=== PATIENT | female | born 1995 | race Caucasian/White ===

== ENCOUNTER 2021-11-01 23:10 | Inpatient (IN) ==
--- NOTE | 2021-11-01 23:30 | Emergency Department Note ---
Impression & Plan Drug overdose ADMIT ED Provider Note HPI: The patient is a 26-year-old female with history of generalized anxiety disorder, bipolar disorder, presents the emergency department after an intentional overdose as a suicide attempt. Patient states she took a total of 170mg of LexaproAt 6 PM today in an attempt to kill herself because she has been feeling increasingly anxious and depressed. Patient states that she then vomited 45 minutes later. On arrival here to the ED the patient is mildly tachycardic at 113 but otherwise hemodynamically stable, she is in no acute distress, she is alert and oriented x3, she is saturating well on room air. 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 On arrival the patient is hemodynamically stable and well-appearing, the ingestion reportedly occurred at 6PM according to the patient. Lab work was ordered including Tylenol and salicylate levels, basic labs, EKG was obtained that shows no evidence of any QT prolongation, QRS is within normal limits. Case was discussed with poison control, recommended a 6-hour period of observation until the patient could be medically cleared. Patient was therefore medically cleared at midnight. She remained otherwise hemodynamically stable and in no acute distress here in the ED throughout her stay. Lab work is otherwise reassuring aside from a moderate leukocytosis that is nonspecific in nature, patient has not had any recent fever/chills, otherwise appears well. Urinalysis does not show any evidence of infection, urine drug screen is currently pending. Patient will require assessment by case management but at this time she is voluntary under 201, 302 is under petition should the patient change her mind. Bed search will be initiated. Patient was signed out to my colleague, Dr. Gunn, change of shift pending bed search and final dis position/transfer For inpatient psychiatric services. Diagnosis: 1.Suicide attempt via drug ingestion 2.Anxiety/depression Disposition: Handoff Ej Romero, DO Emergency Medicine Past Med/Surg History Social History Smoking Status: Never smoker Feels Safe at Home: Yes Allergies Allergies Allergy/AdvReac Type Severity Reaction Status Date / Time No Known Allergies Allergy Unverified 11/02/21 00:02 Home Meds Home Medications Medication Instructions Recorded Confirmed Seroquel 250 mg PO HS 11/01/21 11/01/21 Wellbutrin 150 mg PO DAILY 11/01/21 11/01/21 hydroxyzine HCl 25 mg PO Q4 PRN Anxiety 11/01/21 11/01/21 lamotrigine 150 mg tablet 150 mg PO BID 11/01/21 11/01/21 (Lamictal) propranolol 20 mg PO BID 11/01/21 11/01/21 quetiapine 50 mg tablet (Seroquel) 50 mg PO BID 11/01/21 11/01/21 Results & Data (ED) Vital Signs Vital Signs - 24 hr 11/01/21 23:15 11/02/21 00:00 11/02/21 00:30 Temperature 36.6 C Temperature Source Temporal Artery Scan Pulse Rate 113 H 111 H 107 H Pulse Rate [Right Finger] Pulse Rhythm [Right Finger] Pulse Strength [Right Finger] Respiratory Rate 18 20 18 Respiratory Effort / Characteristics Non-Labored Spontaneous Respiratory Depth Normal Respiratory Pattern Blood Pressure 139/90 137/89 125/79 Blood Pressure [Right Arm] Blood Pressure Mean 106 105 94 Blood Pressure Mean [Right Arm] Blood Pressure Position [Right Arm] Pulse Oximetry 97 97 99 Oxygen Delivery Method Room Air Sepsis Recent Fever Within 48 Hours No Sepsis New/Unexplained Change in Mental Status No Sepsis Action Taken by Nursing No Action Required 11/02/21 01:00 11/02/21 01:30 11/02/21 02:00 Temperature Temperature Source Pulse Rate 104 H 107 H 103 H Pulse Rate [Right Finger] Pulse Rhythm [Right Finger] Pulse Strength [Right Finger] Respiratory Rate 18 20 18 Respiratory Effort / Characteristics Respiratory Depth Respiratory Pattern Blood Pressure 148/88 H 146/77 H 135/84 Blood Pressure [Right Arm] Blood Pressure Mean 108 100 101 Blood Pressure Mean [Right Arm] Blood Pressure Position [Right Arm] Pulse Oximetry 95 97 98 Oxygen Delivery Method Sepsis Recent Fever Within 48 Hours Sepsis New/Unexplained Change in Mental Status Sepsis Action Taken by Nursing 11/02/21 03:13 11/02/21 05:13 Temperature Temperature Source Pulse Rate Pulse Rate [Right Finger] 112 H 78 Pulse Rhythm [Right Finger] Regular Pulse Strength [Right Finger] Normal Respiratory Rate 18 20 Respiratory Effort / Characteristics Non-Labored Spontaneous Respiratory Depth Normal Respiratory Pattern Regular Blood Pressure Blood Pressure [Right Arm] 145/95 H 141/88 H Blood Pressure Mean Blood Pressure Mean [Right Arm] 111 105 Blood Pressure Position [Right Arm] Sitting Pulse Oximetry 99 98 Oxygen Delivery Method Room Air Room Air Sepsis Recent Fever Within 48 Hours Sepsis New/Unexplained Change in Mental Status Sepsis Action Taken by Nursing Laboratory Data Result diagrams: 11/01/21 23:45 11/01/21 23:45 Lab Results 11/01/21 11/01/21 11/01/21 Range/Units 23:30 23:45 23:45 WBC 14.13 H (4.8-10.8) K/ul RBC 4.38 (3.93-5.22) M/uL Hgb 11.7 L (12.0-16.0) g/dl Hct 35.1 (34.1-44.9) % MCV 80.1 (80.0-100.0) fL MCH 26.7 (25.0-34.0) pg MCHC 33.3 (32.0-36.0) g/dL RDW Std Deviation 45.1 (36.4-46.3) fL RDW Coeff of Sara 15.5 H (11.5-14.5) % Plt Count 273 (130-400) K/uL MPV 10.3 (9.4-12.3) fL Immature Gran % (Auto) 0.4 % Neut % (Auto) 65.7 % Lymph % (Auto) 25.2 % Gila % (Auto) 8.2 % Eos % (Auto) 0.3 % Baso % (Auto) 0.2 % Neut # (Auto) 9.28 H (1.4-6.5) K/uL Lymph # (Auto) 3.56 H (1.2-3.4) K/uL Gila # (Auto) 1.16 H (0.24-0.82) K/uL Eos # (Auto) 0.04 (0-0.50) K/uL Baso # (Auto) 0.03 (0-0.2) K/uL Immature Gran # (Auto) 0.06 H (0.00-0.02) K/uL Sodium 135 L (136-145) mmol/L Potassium 3.8 (3.5-5.1) mmol/L Chloride 104 (98-107) mmol/L Carbon Dioxide 22 (21-32) mmol/L Anion Gap 9 (3-11) BUN 11 (6-23) mg/dl Creatinine 0.85 (0.6-1.2) mg/dl Est Cr Clr Drug Dosing 101.6 ml/min Est GFR ( Amer) 110.4 ml/min Est GFR (Non-Af Amer) 95.2 ml/min BUN/Creatinine Ratio 12.9 (10-20) Glucose 104 H (70-99(Fasting)) mg/dl Calcium 9.3 (8.5-10.1) mg/dl Total Bilirubin 0.4 (0.2-1.0) mg/dl AST 13 (13-39) U/L ALT 17 (7-52) U/L Alkaline Phosphatase 67 (34-104) U/L Total Protein 7.5 (6.0-8.3) gm/dl Albumin 4.6 (3.4-5.0) gm/dl Globulin 2.9 (2.5-4.0) gm/dl Albumin/Globulin Ratio 1.6 (0.9-2) TSH (0.300-4.500) uIu/ml Urine Color Urine Appearance (Clear) Urine pH (4.5-7.5) Ur Specific [place] (1.000-1.030) Urine Protein (Negative) Urine Glucose (UA) (Negative) Urine Ketones (Negative) Urine Blood (Negative) Urine Nitrite (Negative) Urine Bilirubin (Negative) Urine Urobilinogen (Negative) Ur Leukocyte Esterase (Negative) Urine WBC (Auto) (0-5) /hpf Urine RBC (Auto) (0-4) /hpf U Hyaline Cast (Auto) (0-5) /lpf U Epithel Cells (Auto) (0-5) /lpf Urine Bacteria (Auto) (Negative) Salicylates (3.0-30) mg/dl Urine Opiates Screen (Neg) Ur Methadone, Qual (Neg) Acetaminophen (10-30) ug/ml Urine Barbiturates (Neg) Ur Phencyclidine (PCP) (Neg) U Amphetamin/Meth Scrn (Neg) MDMA (Ecstasy) Screen (Neg) U Benzodiazepines Scrn (Neg) Ur Cocaine Metabolite (Neg) U Marijuana (THC) Screen (Neg) Ethyl Alcohol mg/dL (<10.0) mg/dl SARS-CoV-2, RNA, NAAT NEGATIVE (NEGATIVE) 11/01/21 11/01/21 11/01/21 Range/Units 23:45 23:45 23:45 WBC (4.8-10.8) K/ul RBC (3.93-5.22) M/uL Hgb (12.0-16.0) g/dl Hct (34.1-44.9) % MCV (80.0-100.0) fL MCH (25.0-34.0) pg MCHC (32.0-36.0) g/dL RDW Std Deviation (36.4-46.3) fL RDW Coeff of Sara (11.5-14.5) % Plt Count (130-400) K/uL MPV (9.4-12.3) fL Immature Gran % (Auto) % Neut % (Auto) % Lymph % (Auto) % Gila % (Auto) % Eos % (Auto) % Baso % (Auto) % Neut # (Auto) (1.4-6.5) K/uL Lymph # (Auto) (1.2-3.4) K/uL Gila # (Auto) (0.24-0.82) K/uL Eos # (Auto) (0-0.50) K/uL Baso # (Auto) (0-0.2) K/uL Immature Gran # (Auto) (0.00-0.02) K/uL Sodium (136-145) mmol/L Potassium (3.5-5.1) mmol/L Chloride (98-107) mmol/L Carbon Dioxide (21-32) mmol/L Anion Gap (3-11) BUN (6-23) mg/dl Creatinine (0.6-1.2) mg/dl Est Cr Clr Drug Dosing ml/min Est GFR ( Amer) ml/min Est GFR (Non-Af Amer) ml/min BUN/Creatinine Ratio (10-20) Glucose (70-99(Fasting)) mg/dl Calcium (8.5-10.1) mg/dl Total Bilirubin (0.2-1.0) mg/dl AST (13-39) U/L ALT (7-52) U/L Alkaline Phosphatase (34-104) U/L Total Protein (6.0-8.3) gm/dl Albumin (3.4-5.0) gm/dl Globulin (2.5-4.0) gm/dl Albumin/Globulin Ratio (0.9-2) TSH 1.534 (0.300-4.500) uIu/ml Urine Color Urine Appearance (Clear) Urine pH (4.5-7.5) Ur Specific [place] (1.000-1.030) Urine Protein (Negative) Urine Glucose (UA) (Negative) Urine Ketones (Negative) Urine Blood (Negative) Urine Nitrite (Negative) Urine Bilirubin (Negative) Urine Urobilinogen (Negative) Ur Leukocyte Esterase (Negative) Urine WBC (Auto) (0-5) /hpf Urine RBC (Auto) (0-4) /hpf U Hyaline Cast (Auto) (0-5) /lpf U Epithel Cells (Auto) (0-5) /lpf Urine Bacteria (Auto) (Negative) Salicylates < 3.0 L (3.0-30) mg/dl Urine Opiates Screen (Neg) Ur Methadone, Qual (Neg) Acetaminophen < 3 L (10-30) ug/ml Urine Barbiturates (Neg) Ur Phencyclidine (PCP) (Neg) U Amphetamin/Meth Scrn (Neg) MDMA (Ecstasy) Screen (Neg) U Benzodiazepines Scrn (Neg) Ur Cocaine Metabolite (Neg) U Marijuana (THC) Screen (Neg) Ethyl Alcohol mg/dL < 10.0 (<10.0) mg/dl SARS-CoV-2, RNA, NAAT (NEGATIVE) 11/02/21 11/02/21 Range/Units 04:55 04:55 WBC (4.8-10.8) K/ul RBC (3.93-5.22) M/uL Hgb (12.0-16.0) g/dl Hct (34.1-44.9) % MCV (80.0-100.0) fL MCH (25.0-34.0) pg MCHC (32.0-36.0) g/dL RDW Std Deviation (36.4-46.3) fL RDW Coeff of Sara (11.5-14.5) % Plt Count (130-400) K/uL MPV (9.4-12.3) fL Immature Gran % (Auto) % Neut % (Auto) % Lymph % (Auto) % Gila % (Auto) % Eos % (Auto) % Baso % (Auto) % Neut # (Auto) (1.4-6.5) K/uL Lymph # (Auto) (1.2-3.4) K/uL Gila # (Auto) (0.24-0.82) K/uL Eos # (Auto) (0-0.50) K/uL Baso # (Auto) (0-0.2) K/uL Immature Gran # (Auto) (0.00-0.02) K/uL Sodium (136-145) mmol/L Potassium (3.5-5.1) mmol/L Chloride (98-107) mmol/L Carbon Dioxide (21-32) mmol/L Anion Gap (3-11) BUN (6-23) mg/dl Creatinine (0.6-1.2) mg/dl Est Cr Clr Drug Dosing ml/min Est GFR ( Amer) ml/min Est GFR (Non-Af Amer) ml/min BUN/Creatinine Ratio (10-20) Glucose (70-99(Fasting)) mg/dl Calcium (8.5-10.1) mg/dl Total Bilirubin (0.2-1.0) mg/dl AST (13-39) U/L ALT (7-52) U/L Alkaline Phosphatase (34-104) U/L Total Protein (6.0-8.3) gm/dl Albumin (3.4-5.0) gm/dl Globulin (2.5-4.0) gm/dl Albumin/Globulin Ratio (0.9-2) TSH (0.300-4.500) uIu/ml Urine Color Dark Yellow Urine Appearance Clear (Clear) Urine pH 5.0 (4.5-7.5) Ur Specific [place] 1.033 H (1.000-1.030) Urine Protein Trace H (Negative) Urine Glucose (UA) Negative (Negative) Urine Ketones Trace H (Negative) Urine Blood Negative (Negative) Urine Nitrite Negative (Negative) Urine Bilirubin 1+ H (Negative) Urine Urobilinogen Negative (Negative) Ur Leukocyte Esterase Trace H (Negative) Urine WBC (Auto) 5-10 H (0-5) /hpf Urine RBC (Auto) 0-4 (0-4) /hpf U Hyaline Cast (Auto) 1-5 (0-5) /lpf U Epithel Cells (Auto) >30 H (0-5) /lpf Urine Bacteria (Auto) Negative (Negative) Salicylates (3.0-30) mg/dl Urine Opiates Screen Neg (Neg) Ur Methadone, Qual Neg (Neg) Acetaminophen (10-30) ug/ml Urine Barbiturates Neg (Neg) Ur Phencyclidine (PCP) Neg (Neg) U Amphetamin/Meth Scrn Neg (Neg) MDMA (Ecstasy) Screen Pos H (Neg) U Benzodiazepines Scrn Neg (Neg) Ur Cocaine Metabolite Neg (Neg) U Marijuana (THC) Screen Neg (Neg) Ethyl Alcohol mg/dL (<10.0) mg/dl SARS-CoV-2, RNA, NAAT (NEGATIVE) Discharge Plan Visit Data Chief Complaint: Overdose (Intentional) Stated Complaint: [facility] Provider: Ej Romero Discharge Problem: Drug overdose Patient Disposition: Still a Patient Forms Stand Alone Forms: My [facility], Suicide Prevention Resources Prescriptions Prescriptions: No Action quetiapine [Seroquel] 50 mg Tablet 50 mg PO BID Seroquel 250 mg PO HS lamotrigine [Lamictal] 150 mg Tablet 150 mg PO BID Wellbutrin 150 mg PO DAILY hydroxyzine HCl 25 mg PO Q4 PRN (Reason: Anxiety) propranolol 20 mg PO BID Referrals Referrals: PCP,NO [Primary Care Provider] -
[2021-11-02 00:04] LABS: Basophils # (auto) 0.03 K/uL (0-0.2); Basophils % (auto) 0.2 %; Eosinophils # (auto) 0.04 K/uL (0-0.50); Eosinophils % (auto) 0.3 %; Hematocrit (blood only) 35.1 % (34.1-44.9); Hemoglobin 11.7 g/dl (12.0-16.0); Immature Granulocytes # (auto) 0.06 K/uL (0.00-0.02); Immature Granulocytes % (auto) 0.4 %; Lymphocytes # (auto) 3.56 K/uL (1.2-3.4); Lymphocytes % (auto) 25.2 %; Mean Corpuscular Hemoglobin 26.7 pg (25.0-34.0); Mean Corpuscular Hgb Conc 33.3 g/dL (32.0-36.0); Mean Corpuscular Volume 80.1 fL (80.0-100.0); Mean Platelet Volume 10.3 fL (9.4-12.3); Monocytes # (auto) 1.16 K/uL (0.24-0.82); Monocytes % (auto) 8.2 %; Neutrophils # (auto) 9.28 K/uL (1.4-6.5); Neutrophils % (auto) 65.7 %; Platelet Count 273 K/uL (130-400); RDW Coefficient of Variation 15.5 % (11.5-14.5); RDW Standard Deviation 45.1 fL (36.4-46.3); Red Blood Count 4.38 M/uL (3.93-5.22); White Blood Count 14.13 K/ul (4.8-10.8)
[2021-11-02 00:21] LABS: Albumin Globulin Ratio 1.6 (0.9-2); Albumin Level 4.6 gm/dl (3.4-5.0); BUN Creatinine Ratio 12.9 (10-20); Bilirubin,Total 0.4 mg/dl (0.2-1.0); Calcium 9.3 mg/dl (8.5-10.1); Creatinine Clr Calc Pharmacy 101.6 ml/min; Est GFR (African American) 110.4 ml/min; Est GFR (Non-African American) 95.2 ml/min; Globulin 2.9 gm/dl (2.5-4.0); Potassium 3.8 mmol/L (3.5-5.1); Total Protein 7.5 gm/dl (6.0-8.3)
[2021-11-02 00:23] LABS: Acetaminophen < 3 ug/ml (10-30); Salicylate < 3.0 mg/dl (3.0-30)
[2021-11-02 05:11] LABS: Appearance Urine Clear (Clear); Bacteria Urine Automated Negative (Negative); Blood Urine Negative (Negative); Color Urine Dark Yellow; Epithelial Cell Urine Auto >30 /lpf (0-5); Glucose Urine UA Negative (Negative); Ketones Urine Trace (Negative); Leukocyte Esterase Urine Trace (Negative); Nitrite Urine Negative (Negative); Protein Urine Trace (Negative); RBC Urine Automated 0-4 /hpf (0-4); Specific Gravity Urine 1.033 (1.000-1.030); Urobilinogen Urine Negative (Negative)
[2021-11-02 05:13] LABS: Bilirubin Urine 1+ (Negative)
[2021-11-02 05:55] LABS: Amphetamines+Metham, Urine Neg (Neg); Barbiturates, Urine Neg (Neg); Benzodiazepine, Urine Neg (Neg); Cocaine, Urine Neg (Neg); MDMA (Ecstacy), Urine Pos (Neg); Methadone, Urine Neg (Neg); Opiate, Urine Neg (Neg); Phencyclidine, Urine Neg (Neg)
--- NOTE | 2021-11-02 07:08 | Emergency Department Note ---
ED Visit Note ED Physician Sign Out Note: 26-year-old with history of anxiety depression who overdosed on Lexapro around 6 PM. Here voluntarily plan for inpatient hospitalization on 201. Poison control advised 6-hour observation which is now completed. Med cleared and signed out to me by Dr. Romero pending placement. No issues throughout the night. She is getting her daily medications. Still awaiting placement when signed out to Dr. May. Ernesto Gunn MD : Drug overdose Qualifiers: Encounter type: initial encounter Injury intent: intentional self-harm Qualified Code(s): T50.902A - Poisoning by unspecified drugs, medicaments and biological substances, intentional self-harm, initial encounter
[2021-11-02] MEDS ORDERED: buPROPion HCl 100 MG TABLET PO SCH (09:00)
[2021-11-02] MEDS ORDERED: PROPRANOLOL HCL 20 MG TAB PO SCH (09:00)
[2021-11-02] MEDS ORDERED: lamoTRIgine 100 MG TAB PO SCH (09:00)
[2021-11-02] MEDS ORDERED: QUEtiapine FUMARATE 25 MG TABLET PO SCH ×2 (09:00→21:00)
--- NOTE | 2021-11-02 10:53 | Electrocardiogram Report ---
Test Reason : Blood Pressure : / mmHG Vent. Rate : 114 BPM Atrial Rate : 114 BPM P-R Int : 136 ms QRS Dur : 080 ms QT Int : 334 ms P-R-T Axes : 033 032 015 degrees QTc Int : 460 ms Sinus tachycardia Otherwise normal ECG No previous ECGs available Confirmed by Sina Munoz ([id number]) on 11/02/2021 10:53:09 AM Referred By: REFERRED SELF Confirmed By:Behzad Munoz
[2021-11-02 14:08] LABS: Pregnancy Test, Urine Negative (Negative)
--- NOTE | 2021-11-02 14:41 | Emergency Department Note ---
ED Visit Note Date and Time: 11/02/2021, 193 Interval History: Sign out received from Dr. Gunn who reviewed details of the encounter. Patient was pending voluntary psychiatric admission. Summary: Patient was re-evaluated at 1934 and vital signs reviewed. The patient did require a dose of Ativan orally for anxiety. She has been cooperative, she remained voluntary. She was seen by psychiatry case management [facility] [address] [place] [address]. The appropriate paperwork for the hospitalization was completed and signed. Disposition: [facility], [address] [place] [address] . : Drug overdose Qualifiers: Encounter type: initial encounter Injury intent: intentional self-harm Qualified Code(s): T50.902A - Poisoning by unspecified drugs, medicaments and biological substances, intentional self-harm, initial encounter
[2021-11-02] MEDS ORDERED: LORazepam 1 MG TAB PO STA (16:10)
[2021-11-02] MEDS ORDERED: BISMUTH SUBSALICYLATE LIQD 236 ML PO PRN (19:28)
[2021-11-02] MEDS ORDERED: hydrOXYzine HCl 25 MG TAB PO PRN (19:28)
[2021-11-02] MEDS ORDERED: ALUMINUM/MAGNESIUM SUSP 30 ML UDC PO PRN (19:28)
[2021-11-02] MEDS ORDERED: MAGNESIUM HYDROXIDE SUSP 30 ML UDC PO PRN (19:28)
[2021-11-02] MEDS ORDERED: SODIUM CHLORIDE 0.65% NA SOLN 45 ML (OCEAN) PRN (19:28)
[2021-11-02] MEDS: QUEtiapine FUMARATE 100 MG TABLET PO SCH (21:47)
[2021-11-02] MEDS: NORETHINDRONE SCH ×2 (21:48→22:07)
[2021-11-02] MEDS: lamoTRIgine 25 MG TAB PO SCH (21:49)
[2021-11-03] MEDS: QUEtiapine FUMARATE 25 MG TABLET PO SCH ×2 (09:04→17:29)
[2021-11-03] MEDS: lamoTRIgine 25 MG TAB PO SCH ×2 (09:07→21:37)
[2021-11-03 09:12] LABS: Chol HDL Ratio 4.5 (0-5)
--- NOTE | 2021-11-03 12:42 | History & Physical ---
Date of Service November 03, 2021 Impression / Recommendations Impression 26 yo female with a family history of suicide attempts and bipolar disorder presents with recurrent suicidal thoughts and an impulsive suicide attempt (2nd attempt) 1 day after starting Wellbutrin (she denies activation or related but also noted some restlessness). Of interest occurred while therapist is on vacation. The patient reports clear periods of hypomania alternating with depression. (1) Bipolar 2 disorder, major depressive episode: Plan The patient was admitted to the [facility] ([facility]) on q15 min checks (behavioral with suicide precautions) for safety. The patient will participate in group, recreational, and milieu therapies and will be offered additional individual and family sessions as clinically appropriate. Risks/benefits/alternatives reviewed re: current medications including but not limited to risk of toxicity/ in OD, need for ongoing monitoring (TD, metabolic--fasting labs completed, and she is aware of risk of rash and dosing adjusted given combo of Lamictal and OCP). She is actually pleased with her medications overall and would like to continue Wellbutrin trial as previously discussed with provider, she was agreeable to start at Wellbutrin SR 100 mg daily rather than 150 mg XL to monitor for activation. Inventory Assets Strengths: intelligent, employed Needs: increase insight into behavior, DBT Suicide Risk Level Suicide Risk Level: High-Moderate (q15 min suicide checks) (ambivalent about OD) Risk Factors Assessment Do You Have Access To A Gun?: No Mental Health Diagnoses: Yes Substance Use Disorders: No Previous Attempt: Yes Family History of Suicide: Yes Previous Psychiatric Hospitalization: No Protective Factors Assessment Employed: Yes ([employer]) Good Rapport with Provider: Yes Psychiatric History Identifying Data BRI SQUIRES is a 26-year-old F who currently lives alone in [place], has a history of one prior suicide attempt, and was admitted on 11/02/21 19:29 on a 201 voluntary commitment s/p Lexapro OD. Chief Complaint "I have mixed feelings as I wanted it to work, I failed." History of Present Illness Bri states that she has dealt with suicidal thoughts "for years" and actually attempted to drown herself in the bathtub last year (after her first therapy session) but "changed my mind." She states that she chronically has thoughts to self-harm/OD despite seeing her therapist twice a week. She denied any specific stressors as "overall my life is the same" and she identifies friendships, keeps in touch with family, denies financial concerns. 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 She reported to ED at she took approximately 170 mg of Lexapro or 30 tabs. She specifically chose the Lexapro as she was no longer prescribed it. When I mentioned holding the propranolol as it can slow heartrate she states that she would never take extra of it as it helps with her migraines. She stated she started to not feel well and called two of her friends who also work at the [employer] and they brought her to the ED after she vomited. At the end of the interview she stated that her therapist is on vacation this week so she did not have her regular twice a week sessions. She wasn't particularly forthcoming or endorsing vegetative symptoms of depression but certainly alludes to anergia when not working. She has experienc ed hypomanic symptoms in the past, "before my Lamictal was 300 mg" where for up to a week or more at a time she would "spend money left and right, sleep with a bunch of people, and be awake awake awake." The depression seems harder to deal with at this time. Past Psychiatric History Current Psychiatric Diagnosis: Bipolar Outpatient Services: [facility]--Eri Hamilton PA-C for meds, Sujata for therapy Previous Psych Admissions: none Do You Have Access To A Gun?: No History of Previous Suicide Attempt: Yes (drowning in bathtub 2020) Past Medication Trials: current meds, records pending Allergies Allergy/AdvReac Type Severity Reaction Status Date / Time No Known Allergies Allergy Unverified 11/02/21 00:02 Home Medications Medication Instructions Recorded Confirmed Type Seroquel 250 mg PO HS 11/01/21 11/01/21 History Wellbutrin 150 mg PO DAILY 11/01/21 11/01/21 History hydroxyzine HCl 25 mg PO Q4 PRN Anxiety 11/01/21 11/01/21 History lamotrigine 150 mg tablet 150 mg PO BID 11/01/21 11/01/21 History (Lamictal) propranolol 20 mg PO BID 11/01/21 11/01/21 History quetiapine 50 mg tablet (Seroquel) 50 mg PO BID 11/01/21 11/01/21 History Norethin 1/35E (28) 1 tab PO DAILY 11/02/21 11/02/21 History Family History Family History of: Suicide Attempts (both biological parents) and Bipolar (mother) Alcohol History Hx of Alcohol Use Over the Past 12 Months: No AUDIT Total Score: 1 Smoking Use Smoking Status: Never smoker Substance History Hx of Prescription Med Misuse Over the Past 12 Months: No Hx of Over the Counter Med Misuse Over the Past 12 Months: No Hx of Inhalent Misuse Over the Past 12 Months: No Hx of Organic Substance Use Over the Past 12 Months: No Hx of Illegal Substances/Street Drug Use Over Past 12 Months: No Problems as a Result of Past Substance Use: None Identified Personal History Living Arrangements: Apartment Childhood: 4 sibs (sister full biological is furthest away in [place]), "basically raised by nan" Highest Grade Completed: Some College 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[employer]) Marital Status: Single Number Of Children: 0 Beliefs That Will Affect Care: None Current Legal Problems: No Hx Legal Problems: No Hx Traumatic Life Events: No Patient History Medical History (Updated 11/03/21 @ 13:56 by Nafisa Reynoso MD) Migraine Social History Smoking Status: Never smoker Preferred Language: Danish Communication Ability: Effective Arbitrator Required: No Beliefs That Will Affect Care: None Feels Safe at Home: Yes Assistive Devices: None Review of Systems Review of Systems: All systems reviewed & are unremarkable except as noted in HPI & below Physical Exam Psychiatric: Orientation: alert and oriented x 3 Apperance: appropriately dressed and appropriately groomed Eye Contact: good eye contact Motor Behavior: no abnormal motor movements Speech: normal rate/rhythm/volume of speech Affect: + depressed affect Mood: + depressed mood Thought Process: goal directed thought process Thought Content: reality based without delusions Suicidal Thoughts: denies suicidal plan and denies suicidal intent; + reports suicidal thoughts Homicidal Thoughts: denies homicidal thoughts Hallucinations: no auditory hallucinations and no visual hallucinations Cognition: attention grossly intact and language grossly intact Estimated Intelligence: consistent with education level Insight: + limited insight Judgement: + limited judgement Vital Signs (Past 24 Hours): Last Vital Signs Temp 37.1 C 11/03/21 06:44 Pulse 109 H 11/03/21 06:44 Resp 16 11/03/21 06:44 BP 132/87 11/03/21 06:44 Pulse Ox 99 11/02/21 20:18 O2 Del Method 11/02/21 20:18 O2 Flow Rate 2 11/02/21 08:29 Exam Statement: A physical exam was performed in the ED by Dr. Romero for the purposes of medical clearance. I accept that physical as correct and adequate for the purposes of the inpatient physical exam. Results & Data ([facility]) Laboratory Results 11/01/21 11/01/21 11/01/21 23:30 23:45 23:45 WBC 14.13 H RBC 4.38 Hgb 11.7 L Hct 35.1 MCV 80.1 MCH 26.7 MCHC 33.3 RDW Std Deviation 45.1 RDW Coeff of Sara 15.5 H Plt Count 273 MPV 10.3 Immature Gran % (Auto) 0.4 Neut % (Auto) 65.7 Lymph % (Auto) 25.2 [place] % (Auto) 8.2 Eos % (Auto) 0.3 Baso % (Auto) 0.2 Neut # (Auto) 9.28 H Lymph # (Auto) 3.56 H [place] # (Auto) 1.16 H Eos # (Auto) 0.04 Baso # (Auto) 0.03 Immature Gran # (Auto) 0.06 H Sodium 135 L Potassium 3.8 Chloride 104 Carbon Dioxide 22 Anion Gap 9 BUN 11 Creatinine 0.85 Est Cr Clr Drug Dosing 101.6 Est GFR ( Amer) 110.4 Est GFR (Non-Af Amer) 95.2 BUN/Creatinine Ratio 12.9 Glucose 104 H Fasting Glucose Calcium 9.3 Total Bilirubin 0.4 AST 13 ALT 17 Alkaline Phosphatase 67 Total Protein 7.5 Albumin 4.6 Globulin 2.9 Albumin/Globulin Ratio 1.6 Triglycerides Cholesterol LDL Cholesterol, Calc VLDL Cholesterol, Calc HDL Cholesterol Cholesterol/HDL Ratio TSH Urine Color Urine Appearance Urine pH Ur Specific [place] Urine Protein Urine Glucose (UA) Urine Ketones Urine Blood Urine Nitrite Urine Bilirubin Urine Urobilinogen Ur Leukocyte Esterase Urine WBC (Auto) Urine RBC (Auto) U Hyaline Cast (Auto) U Epithel Cells (Auto) Urine Bacteria (Auto) Urine Test Salicylates Urine Opiates Screen Ur Methadone, Qual Acetaminophen Urine Barbiturates Ur Phencyclidine (PCP) U Amphetamin/Meth Scrn MDMA (Ecstasy) Screen U Benzodiazepines Scrn Ur Cocaine Metabolite U Marijuana (THC) Screen Ethyl Alcohol mg/dL SARS-CoV-2, RNA, NAAT NEGATIVE 11/01/21 11/01/21 11/01/21 23:45 23:45 23:45 WBC RBC Hgb Hct MCV MCH MCHC RDW Std Deviation RDW Coeff of Sara Plt Count MPV Immature Gran % (Auto) Neut % (Auto) Lymph % (Auto) [place] % (Auto) Eos % (Auto) Baso % (Auto) Neut # (Auto) Lymph # (Auto) [place] # (Auto) Eos # (Auto) Baso # (Auto) Immature Gran # (Auto) Sodium Potassium Chloride Carbon Dioxide Anion Gap BUN Creatinine Est Cr Clr Drug Dosing Est GFR ( Amer) Est GFR (Non-Af Amer) BUN/Creatinine Ratio Glucose Fasting Glucose Calcium Total Bilirubin AST ALT Alkaline Phosphatase Total Protein Albumin Globulin Albumin/Globulin Ratio Triglycerides Cholesterol LDL Cholesterol, Calc VLDL Cholesterol, Calc HDL Cholesterol Cholesterol/HDL Ratio TSH 1.534 Urine Color Urine Appearance Urine pH Ur Specific [place] Urine Protein Urine Glucose (UA) Urine Ketones Urine Blood Urine Nitrite Urine Bilirubin Urine Urobilinogen Ur Leukocyte Esterase Urine WBC (Auto) Urine RBC (Auto) U Hyaline Cast (Auto) U Epithel Cells (Auto) Urine Bacteria (Auto) Urine Test Salicylates < 3.0 L Urine Opiates Screen Ur Methadone, Qual Acetaminophen < 3 L Urine Barbiturates Ur Phencyclidine (PCP) U Amphetamin/Meth Scrn MDMA (Ecstasy) Screen U Benzodiazepines Scrn Ur Cocaine Metabolite U Marijuana (THC) Screen Ethyl Alcohol mg/dL < 10.0 SARS-CoV-2, RNA, NAAT 11/02/21 11/02/21 11/02/21 04:55 04:55 04:55 WBC RBC Hgb Hct MCV MCH MCHC RDW Std Deviation RDW Coeff of Sara Plt Count MPV Immature Gran % (Auto) Neut % (Auto) Lymph % (Auto) [place] % (Auto) Eos % (Auto) Baso % (Auto) Neut # (Auto) Lymph # (Auto) [place] # (Auto) Eos # (Auto) Baso # (Auto) Immature Gran # (Auto) Sodium Potassium Chloride Carbon Dioxide Anion Gap BUN Creatinine Est Cr Clr Drug Dosing Est GFR ( Amer) Est GFR (Non-Af Amer) BUN/Creatinine Ratio Glucose Fasting Glucose Calcium Total Bilirubin AST ALT Alkaline Phosphatase Total Protein Albumin Globulin Albumin/Globulin Ratio Triglycerides Cholesterol LDL Cholesterol, Calc VLDL Cholesterol, Calc HDL Cholesterol Cholesterol/HDL Ratio TSH Urine Color Dark Yellow Urine Appearance Clear Urine pH 5.0 Ur Specific [place] 1.033 H Urine Protein Trace H Urine Glucose (UA) Negative Urine Ketones Trace H Urine Blood Negative Urine Nitrite Negative Urine Bilirubin 1+ H Urine Urobilinogen Negative Ur Leukocyte Esterase Trace H Urine WBC (Auto) 5-10 H Urine RBC (Auto) 0-4 U Hyaline Cast (Auto) 1-5 U Epithel Cells (Auto) >30 H Urine Bacteria (Auto) Negative Urine Test Negative Salicylates Urine Opiates Screen Neg Ur Methadone, Qual Neg Acetaminophen Urine Barbiturates Neg Ur Phencyclidine (PCP) Neg U Amphetamin/Meth Scrn Neg MDMA (Ecstasy) Screen Pos H U Benzodiazepines Scrn Neg Ur Cocaine Metabolite Neg U Marijuana (THC) Screen Neg Ethyl Alcohol mg/dL SARS-CoV-2, RNA, NAAT 11/03/21 08:06 WBC RBC Hgb Hct MCV MCH MCHC RDW Std Deviation RDW Coeff of Sara Plt Count MPV Immature Gran % (Auto) Neut % (Auto) Lymph % (Auto) [place] % (Auto) Eos % (Auto) Baso % (Auto) Neut # (Auto) Lymph # (Auto) [place] # (Auto) Eos # (Auto) Baso # (Auto) Immature Gran # (Auto) Sodium Potassium Chloride Carbon Dioxide Anion Gap BUN Creatinine Est Cr Clr Drug Dosing Est GFR ( Amer) Est GFR (Non-Af Amer) BUN/Creatinine Ratio Glucose Fasting Glucose 89 Calcium Total Bilirubin AST ALT Alkaline Phosphatase Total Protein Albumin Globulin Albumin/Globulin Ratio Triglycerides 114 Cholesterol 214 H LDL Cholesterol, Calc 143 VLDL Cholesterol, Calc 23 HDL Cholesterol 48 Cholesterol/HDL Ratio 4.5 TSH Urine Color Urine Appearance Urine pH Ur Specific [place] Urine Protein Urine Glucose (UA) Urine Ketones Urine Blood Urine Nitrite Urine Bilirubin Urine Urobilinogen Ur Leukocyte Esterase Urine WBC (Auto) Urine RBC (Auto) U Hyaline Cast (Auto) U Epithel Cells (Auto) Urine Bacteria (Auto) Urine Test Salicylates Urine Opiates Screen Ur Methadone, Qual Acetaminophen Urine Barbiturates Ur Phencyclidine (PCP) U Amphetamin/Meth Scrn MDMA (Ecstasy) Screen U Benzodiazepines Scrn Ur Cocaine Metabolite U Marijuana (THC) Screen Ethyl Alcohol mg/dL SARS-CoV-2, RNA, NAAT Diagnostic Findings nl Qtc Current Inpatient Medications Current Inpatient Medications: Current Inpatient Medications Acetaminophen (Acetaminophen 325 Mg Tab) 650 mg PO Q4H PRN PRN Reason: Headache or Minor Fever Stop: 12/02/21 19:27 Al Hydrox/Mg Hydrox/Simethicone (Aluminum/Magnesium Susp 30 Ml Udc) 30 ml PO Q4H PRN PRN Reason: GI Upset Stop: 12/02/21 19:27 Bismuth Subsalicylate (Bismuth Subsalicylate Liqd 236 Ml) 15 ml PO PRN PRN PRN Reason: Loose Stool Stop: 12/02/21 19:27 Bupropion HCl (Bupropion Sr 100 Mg Tabcr) 100 mg PO QAM [facility] Stop: 12/04/21 08:59 Hydroxyzine HCl (Hydroxyzine Hcl 25 Mg Tab) 50 mg PO HSZ PRN PRN Reason: Insomnia Stop: 12/02/21 19:27 Hydroxyzine HCl (Hydroxyzine Hcl 25 Mg Tab) 25 mg PO Q4H PRN PRN Reason: Anxiety Stop: 12/02/21 19:27 Lamotrigine (Lamotrigine 25 Mg Tab) 150 mg PO BID [facility] Stop: 12/02/21 20:59 Last Admin: 11/03/21 09:07 Dose: 150 mg Magnesium Hydroxide (Magnesium Hydroxide Susp 30 Ml Udc) 30 ml PO DAILY PRN PRN Reason: Constipation Stop: 12/02/21 19:27 Norethindrone: Non- Formulary Patient's Own Med 1 each N/A [facility] Stop: 12/02/21 20:59 Last Admin: 11/02/21 22:07 Dose: Not Given Non-Formulary Medication (Propranolol) 20 mg PO BID [facility] Stop: 12/03/21 20:59 Quetiapine Fumarate (Quetiapine Fumarate 100 Mg Tablet) 250 mg PO [facility] Stop: 12/02/21 21:59 Last Admin: 11/02/21 21:47 Dose: 250 mg Quetiapine Fumarate (Qu[facility]apine Fumarate 25 Mg Tablet) [facility] Stop: 12/03/21 07:59 Last Admin: 11/03/21 09:04 Dose: 50 mg Quetiapine Fumarate (Quetiapine Fumarate 25 Mg Tablet) 25 mg PO Q6 PRN PRN Reason: Anxiety/Agitation Stop: 12/03/21 17:59 Sodium Chloride (Sodium Chloride 0.65% Na Soln 45 Ml ([place])) 1 - 2 sprays NA PRN PRN PRN Reason: Nasal Dryness/Congestion Stop: 12/02/21 19:27
[2021-11-03] MEDS: QUEtiapine FUMARATE 100 MG TABLET PO SCH (21:36)
[2021-11-03] MEDS: NORETHINDRONE SCH (21:38)
[2021-11-03] MEDS: PROPRANOLOL HCL 20 MG TAB PO SCH (21:43)
[2021-11-04] MEDS: PROPRANOLOL HCL 20 MG TAB PO SCH ×2 (08:38→21:47)
[2021-11-04] MEDS: lamoTRIgine 25 MG TAB PO SCH ×2 (08:38→21:46)
[2021-11-04] MEDS: buPROPion SR 100 MG TABCR PO SCH (08:38)
[2021-11-04] MEDS: QUEtiapine FUMARATE 25 MG TABLET PO SCH ×2 (08:38→16:56)
--- NOTE | 2021-11-04 13:48 | Psychiatric Progress Note ---
Date of Service November 04, 2021 Impression / Recommendations Impression 26 yo female with a family history of suicide attempts and bipolar disorder presents with recurrent suicidal thoughts and an impulsive suicide attempt (2nd attempt) 1 day after starting Wellbutrin (she denies activation or related but also noted some restlessness). Of interest occurred while therapist is on vacation. The patient reports clear periods of hypomania alternating with depression. 11/04/21: unchanged (1) Bipolar 2 disorder, major depressive episode: Plan 11/04/21: will titrate Propranolol to 40 mg BID on a trial basis. outpatient provider updated. If no evidence of activation on Wellbutrin will likely resume the 150 mg XL tomorrow. 11/03/21: [facility] on q15 min checks (behavioral with suicide precautions) for safety. The patient will participate in group, recreational, and milieu therapies and will be offered additional individual and family sessions as clinically appropriate. Risks/benefits/alternatives reviewed re: current medications including but not limited to risk of toxicity/ in OD, need for ongoing monitoring (TD, metabolic--fasting labs completed, and she is aware of risk of rash and dosing adjusted given combo of Lamictal and OCP). She is actually pleased with her medications overall and would like to continue Wellbutrin trial as previously discussed with provider, she was agreeable to start at Wellbutrin SR 100 mg daily rather than 150 mg XL to monitor for activation. Inventory Assets Strengths: intelligent, employed Needs: increase insight into behavior, DBT Suicide Risk Level Suicide Risk Level: High-Moderate (q15 min suicide checks) (ambivalent about OD) Risk Factors Assessment Do You Have Access To A Gun?: No Mental Health Diagnoses: Yes Substance Use Disorders: No Previous Attempt: Yes Family History of Suicide: Yes Previous Psychiatric Hospitalization: No Protective Factors Assessment Employed: Yes ([employer]) Good Rapport with Provider: Yes Interval History Identifying Information DEANNE SQUIRES is a 26-year-old F who currently lives alone in [place], has a history of one prior suicide attempt, and was admitted on 11/02/21 19:29 on a 201 voluntary commitment s/p Lexapro OD. Chief Complaint "I'm no different than yesterday." Review of Systems Sleep Information Total Hours of Sleep: 8 Meal Information Percent Meal Consumed - Breakfast: 95 Percent Meal Consumed - Lunch: 100 Percent Meal Consumed - Dinner: 100 Subjective Subjective Patient was seen & assessed and interval progress reviewed with treatment team. Had voiced some regret re: OD to therapeutic staff last pm. This am reports low mood, flat, retracts. Tachy and appears anxious. Discussed her labs and dosing of her medications. States that her cholesterol has been elevated since starting Seroquel but desires to continue it. States she is on the progestin only OCP temporarily until able to get new IUD as hers "fell out". Reviewed that doses of Lamictal 300 mg or more could decrease efficacy. Denies sexual activity but first she had heard this. Is receiving positive attention from friends. continues to have no response when mention timing of OD. No new stressors identified. Physical Exam Psychiatric Orientation: alert and oriented x 3 Apperance: appropriately dressed and appropriately groomed Eye Contact: good eye contact Motor Behavior: no abnormal motor movements Speech: normal rate/rhythm/volume of speech Affect: + depressed affect Mood: + depressed mood Thought Process: goal directed thought process Thought Content: reality based without delusions Suicidal Thoughts: denies suicidal plan and denies suicidal intent; + reports suicidal thoughts Homicidal Thoughts: denies homicidal thoughts Hallucinations: no auditory hallucinations and no visual hallucinations Cognition: attention grossly intact and language grossly intact Estimated Intelligence: consistent with education level Insight: + limited insight Judgement: + limited judgement Vital Signs (Past 24 Hours) Last Vital Signs Temp 37.0 C 11/04/21 06:00 Pulse 104 H 11/04/21 07:00 Resp 16 11/04/21 06:00 BP 135/88 11/04/21 07:00 Pulse Ox 97 11/04/21 06:00 O2 Del Method 11/04/21 06:00 O2 Flow Rate 2 11/02/21 08:29 Results & Data ([facility]) Current Inpatient Medications Current Inpatient Medications: Current Inpatient Medications Acetaminophen (Acetaminophen 325 Mg Tab) 650 mg PO Q4H PRN PRN Reason: Headache or Minor Fever Stop: 12/02/21 19:27 Al Hydrox/Mg Hydrox/Simethicone (Aluminum/Magnesium Susp 30 Ml Udc) 30 ml PO Q4H PRN PRN Reason: GI Upset Stop: 12/02/21 19:27 Bismuth Subsalicylate (Bismuth Subsalicylate Liqd 236 Ml) 15 ml PO PRN PRN PRN Reason: Loose Stool Stop: 12/02/21 19:27 Bupropion HCl (Bupropion Sr 100 Mg Tabcr) 100 mg PO QAM [facility] Stop: 12/04/21 08:59 Last Admin: 11/04/21 08:38 Dose: 100 mg Hydroxyzine HCl (Hydroxyzine Hcl 25 Mg Tab) 50 mg PO HSZ PRN PRN Reason: Insomnia Stop: 12/02/21 19:27 Hydroxyzine HCl (Hydroxyzine Hcl 25 Mg Tab) 25 mg PO Q4H PRN PRN Reason: Anxiety Stop: 12/02/21 19:27 Lamotrigine (Lamotrigine 25 Mg Tab) 150 mg PO BID [facility] Stop: 12/02/21 20:59 Last Admin: 11/04/21 08:38 Dose: 150 mg Magnesium Hydroxide (Magnesium Hydroxide Susp 30 Ml Udc) 30 ml PO DAILY PRN PRN Reason: Constipation Stop: 12/02/21 19:27 Norethindrone: Non- Formulary Patient's Own Med 1 each N/A HS [facility] Stop: 12/02/21 20:59 Last Admin: 11/03/21 21:38 Dose: 1 each Propranolol HCl (Propranolol Hcl 20 Mg Tab) 40 mg PO BID [facility] Stop: 12/04/21 20:59 Quetiapine Fumarate (Quetiapine Fumarate 100 Mg Tablet) 250 mg PO HS [facility] Stop: 12/02/21 21:59 Last Admin: 11/03/21 21:36 Dose: 250 mg Quetiapine Fumarate (Quetiapine Fumarate 25 Mg Tablet) 50 mg PO BIDM [facility] Stop: 12/03/21 07:59 Last Admin: 11/04/21 08:38 Dose: 50 mg Quetiapine Fumarate (Quetiapine Fumarate 25 Mg Tablet) 25 mg PO Q6 PRN PRN Reason: Anxiety/Agitation Stop: 12/03/21 17:59 Sodium Chloride (Sodium Chloride 0.65% Na Soln 45 Ml ([place])) 1 - 2 sprays NA PRN PRN PRN Reason: Nasal Dryness/Congestion Stop: 12/02/21 19:27 Mental Health & Subst Abuse Tx Psychiatrist [facility] Date of Appointment with Psychiatrist: 11/24/21 Time of Appointment with Psychiatrist: 3:20 PM Psychiatric Appointment Comment: via Zoom (call if you prefer in-person) Therapist Name of Therapist: [facility] Therapist's Date of Therapist Appointment: 11/10/21 Time of Therapist Appointment: 10:00 AM Therapy Appointment Comment: Resume regular outpatient therapy appointments Post Discharge Appointments Primary Care Physician Name Of Family Doctor: Juma Nicholas
[2021-11-04] MEDS: NORETHINDRONE SCH (21:44)
[2021-11-04] MEDS: QUEtiapine FUMARATE 100 MG TABLET PO SCH (21:45)
--- NOTE | 2021-11-05 05:15 | Psychiatric Progress Note ---
Date of Service November 05, 2021 Impression / Recommendations Impression 26 yo female with a family history of suicide attempts and bipolar disorder presents with recurrent suicidal thoughts and an impulsive suicide attempt (2nd attempt) 1 day after starting Wellbutrin (she denies activation or related but also noted some restlessness). Of interest occurred while therapist is on vacation. The patient reports clear periods of hypomania alternating with depression. 11/05/21: minimal change (1) Bipolar 2 disorder, major depressive episode: Plan 11/05/21: increase Wellbutrin to 150 mg XL. Left message updating [facility] provider yesterday afternoon. 11/04/21: will titrate Propranolol to 40 mg BID on a trial basis. outpatient provider updated. If no evidence of activation on Wellbutrin will likely resume the 150 mg XL tomorrow. 11/03/21: The patient was admitted to the [facility] ([facility]) on q15 min checks (behavioral with suicide precautions) for safety. The patient will participate in group, recreational, and milieu therapies and will be offered additional individual and family sessions as clinically appropriate. Risks/benefits/alternatives reviewed re: current medications including but not limited to risk of toxicity/ in OD, need for ongoing monitoring (TD, metabolic--fasting labs completed, and she is aware of risk of rash and dosing adjusted given combo of Lamictal and OCP). She is actually pleased with her medications overall and would like to continue Wellbutrin trial as previously discussed with provider, she was agreeable to start at Wellbutrin SR 100 mg daily rather than 150 mg XL to monitor for activation. Inventory Assets Strengths: intelligent, employed Needs: increase insight into behavior, DBT Suicide Risk Level Suicide Risk Level: High-Moderate (q15 min suicide checks) (ambivalent about OD) Risk Factors Assessment Do You Have Access To A Gun?: No Mental Health Diagnoses: Yes Substance Use Disorders: No Previous Attempt: Yes Family History of Suicide: Yes Previous Psychiatric Hospitalization: No Protective Factors Assessment Employed: Yes ([employer]) Good Rapport with Provider: Yes Interval History Identifying Information DEANNE SQUIRES is a 26-year-old F who currently lives alone in [place], has a history of one prior suicide attempt, and was admitted on 11/02/21 19:29 on a 201 voluntary commitment s/p Lexapro OD. Chief Complaint "i guess somewhat relieved" Review of Systems Sleep Information Total Hours of Sleep: 8 Meal Information Percent Meal Consumed - Breakfast: 95 Percent Meal Consumed - Lunch: 100 Percent Meal Consumed - Dinner: 10 Subjective Subjective Patient was seen & assessed and interval progress reviewed with nursing and social work. spoke with sister. tolerating increase in propranolol. Appears brighter at times to staff. No evidence of activation from Wellbutrin. Physical Exam Psychiatric Orientation: alert and oriented x 3 Apperance: appropriately dressed and appropriately groomed Eye Contact: good eye contact Motor Behavior: no abnormal motor movements Speech: normal rate/rhythm/volume of speech Affect: + depressed affect Mood: + depressed mood Thought Process: goal directed thought process Thought Content: reality based without delusions Suicidal Thoughts: denies suicidal plan and denies suicidal intent; + reports suicidal thoughts Homicidal Thoughts: denies homicidal thoughts Hallucinations: no auditory hallucinations and no visual hallucinations Cognition: attention grossly intact and language grossly intact Estimated Intelligence: consistent with education level Insight: + limited insight Judgement: + limited judgement Vital Signs (Past 24 Hours) Last Vital Signs Temp 36.4 C 11/04/21 20:00 Pulse 80 11/04/21 21:49 Resp 16 11/04/21 21:22 BP 129/83 11/04/21 21:49 Pulse Ox 99 11/04/21 21:49 O2 Del Method 11/04/21 21:49 O2 Flow Rate 2 11/02/21 08:29 Results & Data ([facility]) Current Inpatient Medications Current Inpatient Medications: Current Inpatient Medications Acetaminophen (Acetaminophen 325 Mg Tab) 650 mg PO Q4H PRN PRN Reason: Headache or Minor Fever Stop: 12/02/21 19:27 Al Hydrox/Mg Hydrox/Simethicone (Aluminum/Magnesium Susp 30 Ml Udc) 30 ml PO Q4H PRN PRN Reason: GI Upset Stop: 12/02/21 19:27 Bismuth Subsalicylate (Bismuth Subsalicylate Liqd 236 Ml) 15 ml PO PRN PRN PRN Reason: Loose Stool Stop: 12/02/21 19:27 Bupropion HCl (Bupropion Sr 100 Mg Tabcr) 100 mg PO QAM MARTHA Stop: 12/04/21 08:59 Last Admin: 11/04/21 08:38 Dose: 100 mg Hydroxyzine HCl (Hydroxyzine Hcl 25 Mg Tab) 50 mg PO HSZ PRN PRN Reason: Insomnia Stop: 12/02/21 19:27 Hydroxyzine HCl (Hydroxyzine Hcl 25 Mg Tab) 25 mg PO Q4H PRN PRN Reason: Anxiety Stop: 12/02/21 19:27 Lamotrigine (Lamotrigine 25 Mg Tab) 150 mg PO BID MARTHA Stop: 12/02/21 20:59 Last Admin: 11/04/21 21:46 Dose: 150 mg Magnesium Hydroxide (Magnesium Hydroxide Susp 30 Ml Udc) 30 ml PO DAILY PRN PRN Reason: Constipation Stop: 12/02/21 19:27 Norethindrone: Non- Formulary Patient's Own Med 1 each N/A HS MARTHA Stop: 12/02/21 20:59 Last Admin: 11/04/21 21:44 Dose: 1 each Propranolol HCl (Propranolol Hcl 20 Mg Tab) 40 mg PO BID MARTHA Stop: 12/04/21 20:59 Last Admin: 11/04/21 21:47 Dose: 40 mg Quetiapine Fumarate (Quetiapine Fumarate 100 Mg Tablet) 250 mg PO HS MARTHA Stop: 12/02/21 21:59 Last Admin: 11/04/21 21:45 Dose: 250 mg Quetiapine Fumarate (Quetiapine Fumarate 25 Mg Tablet) 50 mg PO BIDM MARTHA Stop: 12/03/21 07:59 Last Admin: 11/04/21 16:56 Dose: 50 mg Quetiapine Fumarate (Quetiapine Fumarate 25 Mg Tablet) 25 mg PO Q6 PRN PRN Reason: Anxiety/Agitation Stop: 12/03/21 17:59 Sodium Chloride (Sodium Chloride 0.65% Na Soln 45 Ml ([place])) 1 - 2 sprays NA PRN PRN PRN Reason: Nasal Dryness/Congestion Stop: 12/02/21 19:27 Mental Health & Subst Abuse Tx Psychiatrist Name of Psychiatrist: [employer] [facility] Psychiatrist's Date of Appointment with Psychiatrist: 11/24/21 Time of Appointment with Psychiatrist: 3:20 PM Psychiatric Appointment Comment: via Zoom (call if you prefer in-person) Therapist Name of Therapist: [employer] Noble Freeman Therapist's Date of Therapist Appointment: 11/10/21 Time of Therapist Appointment: 10:00 AM Therapy Appointment Comment: Resume regular outpatient therapy appointments Post Discharge Appointments Primary Care Physician Name Of Family Doctor: Juma Nicholas
[2021-11-05] MEDS: buPROPion SR 100 MG TABCR PO SCH (08:08)
[2021-11-05] MEDS: QUEtiapine FUMARATE 25 MG TABLET PO SCH ×2 (08:09→17:08)
[2021-11-05] MEDS: PROPRANOLOL HCL 20 MG TAB PO SCH ×2 (08:09→21:40)
[2021-11-05] MEDS: lamoTRIgine 25 MG TAB PO SCH ×2 (08:09→21:40)
[2021-11-05] MEDS: QUEtiapine FUMARATE 25 MG TABLET PO PRN (10:24)
[2021-11-05] MEDS: QUEtiapine FUMARATE 100 MG TABLET PO SCH (21:37)
[2021-11-05] MEDS: NORETHINDRONE SCH (21:39)
[2021-11-06] MEDS: QUEtiapine FUMARATE 25 MG TABLET PO SCH ×2 (08:12→17:26)
[2021-11-06] MEDS: buPROPion XL 150 MG TABCR PO SCH (08:12)
[2021-11-06] MEDS: PROPRANOLOL HCL 20 MG TAB PO SCH ×2 (08:13→22:04)
[2021-11-06] MEDS: lamoTRIgine 25 MG TAB PO SCH ×2 (08:13→22:04)
--- NOTE | 2021-11-06 09:20 | Psychiatric Progress Note ---
Date of Service November 06, 2021 Impression / Recommendations Impression 26 yo female with a family history of suicide attempts and bipolar disorder presents with recurrent suicidal thoughts and an impulsive suicide attempt (2nd attempt) 1 day after starting Wellbutrin (she denies activation or related but also noted some restlessness). Of interest occurred while therapist is on vacation. The patient reports clear periods of hypomania alternating with depression. 11/06/21: Reviewed interim progress by Dr. Reynoso. Diagnostically consistent with BPAD type II and possible cluster B traits vs complex trauma. Discussed DBT strategies. Remains very hopeless and with ongoing SI and states she would reattempt if outside of the hospital. Unclear if Wellbutrin contributing to anxiety but doesn't seem to be, based on review of timeline seems anxiety worsened with depression in recent weeks. She seems somewhat enmeshed with therapist further suggesting possible component of timing of attempt to therapist being away. (1) Bipolar 2 disorder, major depressive episode: Plan 11/06/21: Continue with current medications. Discussing DBT strategies to cope with SI and challenging automatic negative thoughts. 11/05/21: increase Wellbutrin to 150 mg XL. Left message updating [facility] provider yesterday afternoon. 11/04/21: will titrate Propranolol to 40 mg BID on a trial basis. outpatient provider updated. If no evidence of activation on Wellbutrin will likely resume the 150 mg XL tomorrow. 11/03/21: The patient was admitted to the [facility] ([facility] unit) on q15 min checks (behavioral with suicide precautions) for safety. The patient will participate in group, recreational, and milieu therapies and will be offered additional individual and family sessions as clinically appropriate. Risks/benefits/alternatives reviewed re: current medications including but not limited to risk of toxicity/ in OD, need for ongoing monitoring (TD, metabolic--fasting labs completed, and she is aware of risk of rash and dosing adjusted given combo of Lamictal and OCP). She is actually pleased with her medications overall and would like to continue Wellbutrin trial as previously discussed with provider, she was agreeable to start at Wellbutrin SR 100 mg daily rather than 150 mg XL to monitor for activation. Inventory Assets Strengths: intelligent, employed Needs: increase insight into behavior, DBT Suicide Risk Level Suicide Risk Level: High-Moderate (q15 min suicide checks) (ambivalent about OD, able to safety contact on the unit agrees to alert staff if SI worsens or she feels unable to remain safe on the unit) Risk Factors Assessment Do You Have Access To A Gun?: No Mental Health Diagnoses: Yes Substance Use Disorders: No Previous Attempt: Yes Family History of Suicide: Yes Previous Psychiatric Hospitalization: No Protective Factors Assessment Employed: Yes ([employer]) Good Rapport with Provider: Yes Interval History Identifying Information DEANNE SQUIRES is a 26-year-old F who currently lives alone in [place], has a history of one prior suicide attempt, and was admitted on 11/02/21 19:29 on a 201 voluntary commitment s/p Lexapro OD. Chief Complaint "I continue to feel like there's no point". Review of Systems Sleep Information Total Hours of Sleep: 6.75 Meal Information Percent Meal Consumed - Breakfast: 100 Percent Meal Consumed - Lunch: 100 Percent Meal Consumed - Dinner: 50 Subjective Subjective Patient was seen & assessed and interval progress reviewed with treatment team nursing and social work. Continues to feel unable to remain safe outside of the hospital, continues to have SI and feels that she would reattempt again outside of the hospital. Seems detached, cannot think of any reasons to live, remains very hopeless. Feels there is nothing that could change to help her suicidal tho ughts and notes that she had planning to by suicide "for awhile and this just seemed like the right time". Reviewed history of periods of elevated mood that was "too high, people didn't want to be around me" and then more recently of depression. Reviewed ways to challenge thoughts that SI will never get better given how much therapy has helped her reduce her anger by working on processing past trauma. Reviewed DBT benefits and goal of having her work on some of these skills. Very anxious this morning but before increased dose of Wellbutrin. She's unsure if WEllbutrin is contributing to anxiety but doesn't believe so as anxiety started before dose increase. Physical Exam Psychiatric Orientation: alert and oriented x 3 Apperance: appropriately dressed and appropriately groomed Eye Contact: good eye contact Motor Behavior: no abnormal motor movements Speech: normal rate/rhythm/volume of speech Affect: + depressed affect Mood: + depressed mood and + anxious mood Thought Process: goal directed thought process Thought Content: reality based without delusions Suicidal Thoughts: denies suicidal plan and denies suicidal intent; + reports suicidal thoughts Homicidal Thoughts: denies homicidal thoughts Hallucinations: no auditory hallucinations and no visual hallucinations Cognition: attention grossly intact and language grossly intact Estimated Intelligence: consistent with education level Insight: + limited insight Judgement: + limited judgement Vital Signs (Past 24 Hours) Last Vital Signs Temp 36.7 C 11/06/21 06:58 Pulse 80 11/06/21 06:58 Resp 16 11/06/21 06:58 BP 112/75 11/06/21 06:58 Pulse Ox 98 11/05/21 06:00 O2 Del Method 11/05/21 06:00 O2 Flow Rate 2 11/02/21 08:29 Results & Data ([facility]) Current Inpatient Medications Current Inpatient Medications: Current Inpatient Medications Acetaminophen (Acetaminophen 325 Mg Tab) 650 mg PO Q4H PRN PRN Reason: Headache or Minor Fever Stop: 12/02/21 19:27 Al Hydrox/Mg Hydrox/Simethicone (Aluminum/Magnesium Susp 30 Ml Udc) 30 ml PO Q4H PRN PRN Reason: GI Upset Stop: 12/02/21 19:27 Bismuth Subsalicylate (Bismuth Subsalicylate Liqd 236 Ml) 15 ml PO PRN PRN PRN Reason: Loose Stool Stop: 12/02/21 19:27 Bupropion HCl (Bupropion Xl 150 Mg Tabcr) 150 mg PO QAM MARTHA Stop: 12/06/21 08:59 Last Admin: 11/06/21 08:12 Dose: 150 mg Hydroxyzine HCl (Hydroxyzine Hcl 25 Mg Tab) 50 mg PO HSZ PRN PRN Reason: Insomnia Stop: 12/02/21 19:27 Hydroxyzine HCl (Hydroxyzine Hcl 25 Mg Tab) 25 mg PO Q4H PRN PRN Reason: Anxiety Stop: 12/02/21 19:27 Lamotrigine (Lamotrigine 25 Mg Tab) 150 mg PO BID MARTHA Stop: 12/02/21 20:59 Last Admin: 11/06/21 08:13 Dose: 150 mg Magnesium Hydroxide (Magnesium Hydroxide Susp 30 Ml Udc) 30 ml PO DAILY PRN PRN Reason: Constipation Stop: 12/02/21 19:27 Norethindrone: Non- Formulary Patient's Own Med 1 each N/A HS MARTHA Stop: 12/02/21 20:59 Last Admin: 11/05/21 21:39 Dose: 1 each Propranolol HCl (Propranolol Hcl 20 Mg Tab) 40 mg PO BID MARTHA Stop: 12/04/21 20:59 Last Admin: 11/06/21 08:13 Dose: 40 mg Quetiapine Fumarate (Quetiapine Fumarate 100 Mg Tablet) 250 mg PO HS MARTHA Stop: 12/02/21 21:59 Last Admin: 11/05/21 21:37 Dose: 250 mg Quetiapine Fumarate (Quetiapine Fumarate 25 Mg Tablet) 50 mg PO BID MARTHA Stop: 12/03/21 07:59 Last Admin: 11/06/21 08:12 Dose: 50 mg Quetiapine Fumarate (Quetiapine Fumarate 25 Mg Tablet) 25 mg PO Q6 PRN PRN Reason: Anxiety/Agitation Stop: 12/03/21 17:59 Last Admin: 11/05/21 10:24 Dose: 25 mg Sodium Chloride (Sodium Chloride 0.65% Na Soln 45 Ml ([place])) 1 - 2 sprays NA PRN PRN PRN Reason: Nasal Dryness/Congestion Stop: 12/02/21 19:27 Mental Health & Subst Abuse Tx Psychiatrist Name of Psychiatrist: [facility] Psychiatrist's Date of Appointment with Psychiatrist: 11/24/21 Time of Appointment with Psychiatrist: 3:20 PM Psychiatric Appointment Comment: via Zoom (call if you prefer in-person) Therapist Name of Therapist: [employer] [facility] Therapist's Date of Therapist Appointment: 11/10/21 Time of Therapist Appointment: 10:00 AM Therapy Appointment Comment: Resume regular outpatient therapy appointments Post Discharge Appointments Primary Care Physician Name Of Family Doctor: Juma Nicholas
[2021-11-06] MEDS: QUEtiapine FUMARATE 25 MG TABLET PO PRN (10:08)
[2021-11-06] MEDS: QUEtiapine FUMARATE 100 MG TABLET PO SCH (22:02)
[2021-11-06] MEDS: NORETHINDRONE SCH (22:03)
[2021-11-07] MEDS: PROPRANOLOL HCL 20 MG TAB PO SCH ×2 (08:47→21:50)
[2021-11-07] MEDS: buPROPion XL 150 MG TABCR PO SCH (08:47)
[2021-11-07] MEDS: QUEtiapine FUMARATE 25 MG TABLET PO SCH ×2 (08:47→17:12)
[2021-11-07] MEDS: lamoTRIgine 25 MG TAB PO SCH ×2 (08:47→21:50)
[2021-11-07] MEDS: ACETAMINOPHEN 325 MG TAB PO PRN ×2 (08:52→22:26)
[2021-11-07] MEDS: hydrOXYzine HCl 25 MG TAB PO PRN (13:19)
--- NOTE | 2021-11-07 16:53 | Psychiatric Progress Note ---
Date of Service November 07, 2021 Impression / Recommendations Impression 26 yo female with a family history of suicide attempts and bipolar disorder presents with recurrent suicidal thoughts and an impulsive suicide attempt (2nd attempt) 1 day after starting Wellbutrin (she denies activation or related but also noted some restlessness). Of interest occurred while therapist is on vacation. The patient reports clear periods of hypomania alternating with depression. 11/07/21: Continues to endorse significant depression with ongoing SI with plan and inability to safety plan. Tolerating Wellbutrin without any side effects. Denies any other medication side effects. Often projects helplessness during conversations with providers as well as lot of help seeking/help rejecting which I suspect is due to trauma history/cluster B traits. Continue to discuss DBT skills and review ways of returning locus of control and strategies for safety to her. (1) Bipolar 2 disorder, major depressive episode: (2) Post traumatic stress disorder (PTSD): Plan 11/07/21: Continue with current medications. Ongoing DBT work. Continuing to focus on ways to improve self-efficacy. 11/06/21: Continue with current medications. Discussing DBT strategies to cope with SI and challenging automatic negative thoughts. 11/05/21: increase Wellbutrin to 150 mg XL. Left message updating [facility] provider yesterday afternoon. 11/04/21: will titrate Propranolol to 40 mg BID on a trial basis. outpatient provider updated. If no evidence of activation on Wellbutrin will likely resume the 150 mg XL tomorrow. 11/03/21: The patient was admitted to the [facility] ([facility] mental health unit) on q15 min checks (behavioral with suicide precautions) for safety. The patient will participate in group, recreational, and milieu therapies and will be offered additional individual and family sessions as clinically appropriate. Risks/benefits/alternatives reviewed re: current medications including but not limited to risk of toxicity/ in OD, need for ongoing monitoring (TD, metabolic--fasting labs completed, and she is aware of risk of rash and dosing adjusted given combo of Lamictal and OCP). She is actually pleased with her medications overall and would like to continue Wellbutrin trial as previously discussed with provider, she was agreeable to start at Wellbutrin SR 100 mg daily rather than 150 mg XL to monitor for activation. Inventory Assets Strengths: intelligent, employed Needs: increase insight into behavior, DBT Suicide Risk Level Suicide Risk Level: High-Moderate (q15 min suicide checks) (regretful to be alive after OD and remains depressed but able to safety contact on the unit agrees to alert staff if SI worsens or she feels unable to remain safe on the unit) Risk Factors Assessment Do You Have Access To A Gun?: No Mental Health Diagnoses: Yes Substance Use Disorders: No Previous Attempt: Yes Family History of Suicide: Yes Previous Psychiatric Hospitalization: No Protective Factors Assessment Employed: Yes ([employer]) Good Rapport with Provider: Yes Interval History Identifying Information DEANNE SQUIRES is a 26-year-old F who currently lives alone in [place], has a history of one prior suicide attempt, and was admitted on 11/02/21 19:29 on a 201 voluntary commitment s/p Lexapro OD. Chief Complaint "I just don't care about anything". Review of Systems Sleep Information Total Hours of Sleep: 5.5 Meal Information Percent Meal Consumed - Breakfast: 100 Percent Meal Consumed - Lunch: 0 Percent Meal Consumed - Dinner: 50 Subjective Subjective Patient was seen & assessed and interval progress reviewed with treatment team n julián and social work. Continues to express significant depression and hopelessness. Last night told staff she remained regretful to have survived her suicide attempt. Tells me she continues to experience chronic daily SI to but feels safe in the hospital. States that if she leaves she feels she will likely act on her thoughts. States she feels "kind of flat" and that "I just don't care about anything". Expresses frustration with [facility] providers attempts to help support her stating "I don't need to hear all the psychology stuff and tips, I know it all, it's all psychology babble that's not my issue it's that I don't care". Reviewed the importance of practicing the DBT skills and worksheets she was provided with and encouraged her to focus on ways to help increase structure to find ways to experience emotion and feel more which she believes will help with her lack of caring. Also encouraged consideration of ways to help avoiding acting on thoughts of SI as these are unlikely to resolve quickly which she feels is a main stressor as she also doesn't want to be "stuck in the hospital for too long, I want to be outside and back at work" as being in the hospital increases her anxiety. She denies any side effects from Wellbutrin, she feels it may be helping. Physical Exam Psychiatric Orientation: alert and oriented x 3 Apperance: appropriately dressed and appropriately groomed Eye Contact: + fair eye contact Motor Behavior: no abnormal motor movements Speech: normal rate/rhythm/volume of speech Affect: + flat affect Mood: + depressed mood, + anxious mood and + irritable mood Thought Process: goal directed thought process Thought Content: reality based without delusions and + hopelessness Suicidal Thoughts: denies suicidal intent; + reports suicidal thoughts and + reports suicidal plan (outside the hospital) Homicidal Thoughts: denies homicidal thoughts Hallucinations: no auditory hallucinations and no visual hallucinations Cognition: recent memory grossly intact, remote memory grossly intact, attention grossly intact and language grossly intact Estimated Intelligence: consistent with education level Insight: + limited insight Judgement: + limited judgement Vital Signs (Past 24 Hours) Last Vital Signs Temp 36.6 C 11/07/21 06:50 Pulse 75 11/07/21 06:51 Resp 18 11/07/21 06:50 BP 111/81 11/07/21 06:51 Pulse Ox 99 11/07/21 06:50 O2 Del Method 11/07/21 06:50 O2 Flow Rate 2 11/02/21 08:29 Results & Data ([facility]) Current Inpatient Medications Current Inpatient Medications: Current Inpatient Medications Acetaminophen (Acetaminophen 325 Mg Tab) 650 mg PO Q4H PRN PRN Reason: Headache or Minor Fever Stop: 12/02/21 19:27 Last Admin: 11/07/21 08:52 Dose: 650 mg Al Hydrox/Mg Hydrox/Simethicone (Aluminum/Magnesium Susp 30 Ml Udc) 30 ml PO Q4H PRN PRN Reason: GI Upset Stop: 12/02/21 19:27 Bismuth Subsalicylate (Bismuth Subsalicylate Liqd 236 Ml) 15 ml PO PRN PRN PRN Reason: Loose Stool Stop: 12/02/21 19:27 Bupropion HCl (Bupropion Xl 150 Mg Tabcr) 150 mg PO QAM MARTHA Stop: 12/06/21 08:59 Last Admin: 11/07/21 08:47 Dose: 150 mg Hydroxyzine HCl (Hydroxyzine Hcl 25 Mg Tab) 50 mg PO HSZ PRN PRN Reason: Insomnia Stop: 12/02/21 19:27 Hydroxyzine HCl (Hydroxyzine Hcl 25 Mg Tab) 25 mg PO Q4H PRN PRN Reason: Anxiety Stop: 12/02/21 19:27 Last Admin: 11/07/21 13:19 Dose: 25 mg Lamotrigine (Lamotrigine 25 Mg Tab) 150 mg PO BID MARTHA Stop: 12/02/21 20:59 Last Admin: 11/07/21 08:47 Dose: 150 mg Magnesium Hydroxide (Magnesium Hydroxide Susp 30 Ml Udc) 30 ml PO DAILY PRN PRN Reason: Constipation Stop: 12/02/21 19:27 Norethindrone: Non- Formulary Patient's Own Med 1 each N/A HS [facility] Stop: 12/02/21 20:59 Last Admin: 11/06/21 22:03 Dose: 1 each Propranolol HCl (Propranolol Hcl 20 Mg Tab) 40 mg PO BID MARTHA Stop: 12/04/21 20:59 Last Admin: 11/07/21 08:47 Dose: 40 mg Quetiapine Fumarate (Quetiapine Fumarate 100 Mg Tablet) 250 mg PO HS MARTHA Stop: 12/02/21 21:59 Last Admin: 11/06/21 22:02 Dose: 250 mg Quetiapine Fumarate (Qu[facility]apine Fumarate 25 Mg Tablet) [facility] Stop: 12/03/21 07:59 Last Admin: 11/07/21 08:47 Dose: 50 mg Quetiapine Fumarate (Quetiapine Fumarate 25 Mg Tablet) 25 mg PO Q6 PRN PRN Reason: Anxiety/Agitation Stop: 12/03/21 17:59 Last Admin: 11/06/21 10:08 Dose: 25 mg Sodium Chloride (Sodium Chloride 0.65% Na Soln 45 Ml ([place])) 1 - 2 sprays NA PRN PRN PRN Reason: Nasal Dryness/Congestion Stop: 12/02/21 19:27 Mental Health & Subst Abuse Tx Psychiatrist Name of Psychiatrist: [facility] Psych[facility]rist's Date of Appointment with Psychiatrist: 11/24/21 Time of Appointment with Psychiatrist: 3:20 PM Psychiatric Appointment Comment: via Zoom (call if you prefer in-person) Therapist Name of Therapist: [employer] [facility] Freeman Therapist's Date of Therapist Appointment: 11/10/21 Time of Therapist Appointment: 10:00 AM Therapy Appointment Comment: Resume regular outpatient therapy appointments Post Discharge Appointments Primary Care Physician Name Of Family Doctor: [facility] - Jeremiah Santo PA-C Primary Care Date of Appointment with PCP: 11/15/21 Time of Appointment with PCP: 9:45 AM Provider Appointment Comment: [phone] [place] [id number]
[2021-11-07] MEDS: NORETHINDRONE SCH (21:51)
[2021-11-07] MEDS: QUEtiapine FUMARATE 100 MG TABLET PO SCH (21:51)
[2021-11-08] MEDS: buPROPion XL 150 MG TABCR PO SCH (08:47)
[2021-11-08] MEDS: lamoTRIgine 25 MG TAB PO SCH ×2 (08:47→22:10)
[2021-11-08] MEDS: QUEtiapine FUMARATE 25 MG TABLET PO SCH ×2 (08:48→16:50)
[2021-11-08] MEDS: PROPRANOLOL HCL 20 MG TAB PO SCH ×2 (08:48→22:10)
[2021-11-08] MEDS: ACETAMINOPHEN 325 MG TAB PO PRN (10:01)
[2021-11-08] MEDS: hydrOXYzine HCl 25 MG TAB PO PRN (13:47)
--- NOTE | 2021-11-08 17:40 | Psychiatric Progress Note ---
Date of Service November 08, 2021 Impression / Recommendations Impression 26 yo female with a family history of suicide attempts and bipolar disorder presents with recurrent suicidal thoughts and an impulsive suicide attempt (2nd attempt) 1 day after starting Wellbutrin (she denies activation or related but also noted some restlessness). Of interest occurred while therapist is on vacation. The patient reports clear periods of hypomania alternating with depression. 11/08/21: Endorses some improvement in mood but continues to feel that she will act on suicidal thoughts if she leaves the hospital. Reviewed DBT skills and positive trend of some improvement in mood today. Going help seeking/help rejecting but willing to work on some DBT skills. Agrees to DBT IOP virtual referral if this won't interfere with work/ Does not wish to make any further medication adjustments as she feels the Wellbutrin is helping at the current dose. Consents to adjustment of Vistaril to higher prn dose during the day for anxiety. Continue to discuss DBT skills and review ways of returning locus of co ntrol and strategies for safety to her. (1) Bipolar 2 disorder, major depressive episode: (2) Post traumatic stress disorder (PTSD): Plan 11/08/21: Continue with current medications and treatment plan. 11/07/21: Continue with current medications. Ongoing DBT work. Continuing to focus on ways to improve self-efficacy. 11/06/21: Continue with current medications. Discussing DBT strategies to cope with SI and challenging automatic negative thoughts. 11/05/21: increase Wellbutrin to 150 mg XL. Left message updating [facility] provider yesterday afternoon. 11/04/21: will titrate Propranolol to 40 mg BID on a trial basis. outpatient provider updated. If no evidence of activation on Wellbutrin will likely resume the 150 mg XL tomorrow. 11/03/21: The patient was admitted to the [facility] ([facility] inpatient mental health unit) on q15 min checks (behavioral with suicide precautions) for safety. The patient will participate in group, recreational, and milieu therapies and will be offered additional individual and family sessions as clinically appropriate. Risks/benefits/alternatives reviewed re: current medications including but not limited to risk of toxicity/ in OD, need for ongoing monitoring (TD, metabolic--fasting labs completed, and she is aware of risk of rash and dosing adjusted given combo of Lamictal and OCP). She is actually pleased with her medications overall and would like to continue Wellbutrin trial as previously discussed with provider, she was agreeable to start at Wellbutrin SR 100 mg daily rather than 150 mg XL to monitor for activation. Inventory Assets Strengths: intelligent, employed Needs: increase insight into behavior, DBT Suicide Risk Level Suicide Risk Level: High-Moderate (q15 min suicide checks) (regretful to be alive after OD and remains depressed but able to safety contact on the unit agrees to alert staff if SI worsens or she feels unable to remain safe on the unit) Risk Factors Assessment Do You Have Access To A Gun?: No Mental Health Diagnoses: Yes Substance Use Disorders: No Previous Attempt: Yes Family History of Suicide: Yes Previous Psychiatric Hospitalization: No Protective Factors Assessment Employed: Yes ([employer]) Good Rapport with Provider: Yes Interval History Identifying Information DEANNE SQUIRES is a 26-year-old F who currently lives alone in [place], has a history of one prior suicide attempt, and was admitted on 11/02/21 19:29 on a 201 voluntary commitment s/p Lexapro OD. Chief Complaint "My mood is definitely improving". Review of Systems Sleep Information Total Hours of Sleep: 8 Meal Information Percent Meal Consumed - Breakfast: 100 Percent Meal Consumed - Lunch: 0 Percent Meal Consumed - Dinner: 50 Subjective Subjective Patient was seen & assessed and interval progress reviewed with treatment team nursing and social work. Today she reports that her mood is improving and that "I can feel happy I notice I can have fun again" and she continues to also feel as though her chronic suicidality will "never get better" that while she does not have an active plan for this and states she would never attempt in the hospital but "I keep thinking about things that I could do when I leave" she notes that she has been having increased anxiety in the afternoon and evening though finds minimal benefit from the hydroxyzine and finds Seroquel as needed too sedating. Reviewed option for increased dose of hydroxyzine to be available as a as needed which she would like to do. Reviewed the [place] BPD screen he reported periods of impulsivity during episodes of jonathon which for her tend to last 2 to 3 days up to 2 weeks at the longest as well as history of anger in the past but not currently and reported positive responses to feeling chronically empty and history of a suicide attempt but denies any history of self-harm nor difficulty with relationships or attempts to avoid abandonment nor lack of identity. Reviewed impact that trauma can have on emotional regulation and chronic suicidal ideation in regards to how her amygdala and prefrontal cortex may function. Continue to encourage DBT skills given her chronic suicidal ideation. She continues to feel as though there is minimal motivation to engage with certain treatments as she could "just kill myself". We review and reflect on periods of time in the past where she has gone without thoughts of suicide and potential benefit of DBT. She agrees she would be willing to do an intensive outpatient virtual DBT if it did not interfere with her work schedule. Interestingly while she speaks at length about the chronicity and intensity of her suicidal ideation she is also very future oriented about her goals with work and in regard to therapy. Physical Exam Psychiatric Orientation: alert and oriented x 3 Apperance: appropriately dressed and appropriately groomed Eye Contact: good eye contact Motor Behavior: no abnormal motor movements Speech: normal rate/rhythm/volume of speech Affect: + constricted affect (but smiles at times) Mood: + depressed mood, + anxious mood and + irritable mood Thought Process: goal directed thought process Thought Content: reality based without delusions and + hopelessness Suicidal Thoughts: denies suicidal intent; + reports suicidal thoughts and + reports suicidal plan (non specific for outside the hospital) Homicidal Thoughts: denies homicidal thoughts Hallucinations: no auditory hallucinations and no visual hallucinations Cognition: recent memory grossly intact, remote memory grossly intact, attention grossly intact and language grossly intact Estimated Intelligence: consistent with education level Insight: + limited insight Judgement: + limited judgement Vital Signs (Past 24 Hours) Last Vital Signs Temp 36.8 C 11/08/21 06:00 Pulse 75 11/08/21 07:07 Resp 16 11/08/21 06:00 BP 115/77 11/08/21 07:07 Pulse Ox 99 11/08/21 06:00 O2 Del Method 11/08/21 06:00 O2 Flow Rate 2 11/02/21 08:29 Results & Data ([facility]) Current Inpatient Medications Current Inpatient Medications: Current Inpatient Medications Acetaminophen (Acetaminophen 325 Mg Tab) 650 mg PO Q4H PRN PRN Reason: Headache or Minor Fever Stop: 12/02/21 19:27 Last Admin: 11/08/21 10:01 Dose: 650 mg Al Hydrox/Mg Hydrox/Simethicone (Aluminum/Magnesium Susp 30 Ml Udc) 30 ml PO Q4H PRN PRN Reason: GI Upset Stop: 12/02/21 19:27 Bismuth Subsalicylate (Bismuth Subsalicylate Liqd 236 Ml) 15 ml PO PRN PRN PRN Reason: Loose Stool Stop: 12/02/21 19:27 Bupropion HCl (Bupropion Xl 150 Mg Tabcr) 150 mg PO QAM [facility] Stop: 12/06/21 08:59 Last Admin: 11/08/21 08:47 Dose: 150 mg Hydroxyzine HCl (Hydroxyzine Hcl 25 Mg Tab) 50 mg PO HSZ PRN PRN Reason: Insomnia Stop: 12/02/21 19:27 Hydroxyzine HCl (Hydroxyzine Hcl 25 Mg Tab) 25 mg PO Q4H PRN PRN Reason: Anxiety Stop: 12/02/21 19:27 Last Admin: 11/08/21 13:47 Dose: 25 mg Lamotrigine (Lamotrigine 25 Mg Tab) 150 mg PO BID MARTHA Stop: 12/02/21 20:59 Last Admin: 11/08/21 08:47 Dose: 150 mg Magnesium Hydroxide (Magnesium Hydroxide Susp 30 Ml Udc) 30 ml PO DAILY PRN PRN Reason: Constipation Stop: 12/02/21 19:27 Norethindrone: Non- Formulary Patient's Own Med 1 each N/A HS [facility] Stop: 12/02/21 20:59 Last Admin: 11/07/21 21:51 Dose: 1 each Propranolol HCl (Propranolol Hcl 20 Mg Tab) 40 mg PO BID [facility] Stop: 12/04/21 20:59 Last Admin: 11/08/21 08:48 Dose: 40 mg Quetiapine Fumarate (Quetiapine Fumarate 100 Mg Tablet) 250 mg PO HS [facility]THA Stop: 12/02/21 21:59 Last Admin: 11/07/21 21:51 Dose: 250 mg Quetiapine Fumarate (Quetiapine Fumarate 25 Mg Tablet) 50 mg PO BIDM [facility] Stop: 12/03/21 07:59 Last Admin: 11/08/21 16:50 Dose: 50 mg Quetiapine Fumarate (Quetiapine Fumarate 25 Mg Tablet) 25 mg PO Q6 PRN PRN Reason: Anxiety/Agitation Stop: 12/03/21 17:59 Last Admin: 11/06/21 10:08 Dose: 25 mg Sodium Chloride (Sodium Chloride 0.65% Na Soln 45 Ml ([place])) 1 - 2 sprays NA PRN PRN PRN Reason: Nasal Dryness/Congestion Stop: 12/02/21 19:27 Mental Health & Subst Abuse Tx Psychiatrist Name of Psychiatrist: [employer] Psychiatrist's Date of Appointment with Psychiatrist: 11/24/21 Time of Appointment with Psychiatrist: 3:20 PM Psychiatric Appointment Comment: via Zoom (call if you prefer in-person) Therapist Name of Therapist: [facility] Therapist's Date of Therapist Appointment: 11/10/21 Time of Therapist Appointment: 10:00 AM Therapy Appointment Comment: Resume regular outpatient therapy appointments Post Discharge Appointments Primary Care Physician Name Of Family Doctor: [facility] - Jeremiah Santo PA-C Primary Care Date of Appointment with PCP: 11/15/21 Time of Appointment with PCP: 9:45 AM Provider Appointment Comment: [phone] [place] [id number]
[2021-11-08] MEDS: NORETHINDRONE SCH (22:10)
[2021-11-08] MEDS: QUEtiapine FUMARATE 100 MG TABLET PO SCH (22:12)
[2021-11-09] MEDS: lamoTRIgine 25 MG TAB PO SCH ×2 (08:19→22:30)
[2021-11-09] MEDS: buPROPion XL 150 MG TABCR PO SCH (08:19)
[2021-11-09] MEDS: PROPRANOLOL HCL 20 MG TAB PO SCH ×2 (08:20→22:29)
[2021-11-09] MEDS: QUEtiapine FUMARATE 25 MG TABLET PO SCH ×2 (08:20→17:41)
[2021-11-09] MEDS: hydrOXYzine HCl 25 MG TAB PO PRN (10:09)
--- NOTE | 2021-11-09 17:02 | Psychiatric Progress Note ---
Date of Service November 09, 2021 Impression / Recommendations Impression 26 yo female with a family history of suicide attempts and bipolar disorder presents with recurrent suicidal thoughts and an impulsive suicide attempt (2nd attempt) 1 day after starting Wellbutrin (she denies activation or related but also noted some restlessness). Of interest occurred while therapist is on vacation. The patient reports clear periods of hypomania alternating with depression. Diagnostically also significant help seeking help rejecting behaviors, splitting and projection consistent with trauma and cluster B traits. 11/09/21: Endorses improvement in mood and no hopelessness but continues to feel that she will act on suicidal thoughts if she leaves the hospital and expresses high levels of self-hatred. Completed [facility] suicide assessment and specific strategies to address her suicidality. Continue to discuss DBT skills and review ways of returning locus of control and strategies for safety to her. She agreed to referral for virtual DBT-focused IOP. Spoke with her outpatient psychiatric provider Eri Hamilton to review behaviors observed in the inpatient setting and medication adjustments and IOP plan. Remains unable to safety plan for outside of the hospital and states high intent to act on SI outside of the hospital. (1) Bipolar 2 disorder, major depressive episode: (2) Post traumatic stress disorder (PTSD): Plan 11/09/21: Continue with current medications and tx plan. Working on DBT IOP referral given ongoing high levels of SI and self-hatred even after improvement of mood. 11/08/21: Continue with current medications and treatment plan. 11/07/21: Continue with current medications. Ongoing DBT work. Continuing to focus on ways to improve self-efficacy. 11/06/21: Continue with current medications. Discussing DBT strategies to cope with SI and challenging automatic negative thoughts. 11/05/21: increase Wellbutrin to 150 mg XL. Left message updating [facility] provider yesterday afternoon. 11/04/21: will titrate Propranolol to 40 mg BID on a trial basis. outpatient provider updated. If no evidence of activation on Wellbutrin will likely resume the 150 mg XL tomorrow. 11/03/21: The patient was admitted to the [facility] ([facility] mental health unit) on q15 min checks (behavioral with suicide precautions) for safety. The patient will participate in group, recreational, and milieu therapies and will be offered additional individual and family sessions as clinically appropriate. Risks/benefits/alternatives reviewed re: current medications including but not limited to risk of toxicity/ in OD, need for ongoing monitoring (TD, metabolic--fasting labs completed, and she is aware of risk of rash and dosing adjusted given combo of Lamictal and OCP). She is actually pleased with her medications overall and would like to continue Wellbutrin trial as previously discussed with provider, she was agreeable to start at Wellbutrin SR 100 mg daily rather than 150 mg XL to monitor for activation. Inventory Assets Strengths: intelligent, employed Needs: increase insight into behavior, DBT Suicide Risk Level Suicide Risk Level: High-Moderate (q15 min suicide checks) (regretful to be alive after OD and remains depressed but able to safety contact on the unit agrees to alert staff if SI worsens or she feels unable to remain safe on the unit) Risk Factors Assessment Do You Have Access To A Gun?: No Mental Health Diagnoses: Yes Substance Use Disorders: No Previous Attempt: Yes Family History of Suicide: Yes Previous Psychiatric Hospitalization: No Protective Factors Assessment Employed: Yes ([employer]) Good Rapport with Provider: Yes Interval History Identifying Information DEANNE SQUIRES is a 26-year-old F who currently lives alone in [place], has a history of one prior suicide attempt, and was admitted on 11/02/21 19:29 on a 201 voluntary commitment s/p Lexapro OD. Chief Complaint "I want to but that's not going to change if I stay here longer". Review of Systems Sleep Information Total Hours of Sleep: 6.5 Meal Information Percent Meal Consumed - Breakfast: 85 Percent Meal Consumed - Lunch: 100 Percent Meal Consumed - Dinner: 50 Subjective Subjective Patient was seen & assessed and interval progress reviewed with treatment team nursing and social work. Attending groups but at times dismissive of strategies and coping skills. Reamins frustrated that her SI hasn't changed. She feels her mood has improved "a lot" and that her mood is now "good" but also continues to feel like "I'm going to kill myself". Her continues to make statements of her SI and states "I have intent, I will do it if I leave" but then is also future- oriented at other times and expresses surprise when we discuss that discharge cannot happen if she remains acutely suicidal with thoughts of re-attempting if she leaves. She continues to find the medications helpful noting the Wellbutrin works well and "the medications feel really balanced and are working well". She also feels her anxiety is much better controlled noting "it's much better than it's been in a long time". She had a family meeting and told the social secretary and her sister that she continues to have no reasons for living. She and social work contacted DBT IOP program but then she declined this due to group-based format. In meeting with her in the afternoon she and I discussed her mixed emotions that her mood and suicidality are often separate entities. We also reviewed the benefits of DBT for chronic SI and distress tolerance and that group format is focused on education/learning skills and practicing these and seeing what works and what doesn't and she then stated she would be willing to the virtual evening IOP which includes significant DBT focus though not as much as day-time programming but this interferes with her work. Also did the [facility] Suicide Assessment Form with her to further discuss and explore her suicidality and potential ways to help treat this as her depression has improved. She rated her overall suicide risk, which ranges from 1-not at all to 5-completely, as 4 or 5 out of 5. She notes her biggest contributing factors to suicidality are her self-hatred and sense of being unaccomplished due to dropping out of college. She also notes managing her house is a stressor. We reviewed potential coping skills and strategies to address some of these concerns and she was able to write reasons for living as various friends. States she doesn't feel hopeless noting "I know things can get better" but emphasizes that "life just sucks and I don't care and I hate myself". Physical Exam Psychiatric Orientation: alert and oriented x 3 Apperance: appropriately dressed and appropriately groomed Eye Contact: good eye contact and + fair eye contact Motor Behavior: no abnormal motor movements Speech: normal rate/rhythm/volume of speech Affect: + flat affect, + irritable affect and + constricted affect (but smiles at times) Mood: + anxious mood and + irritable mood; no depressed mood Thought Process: goal directed thought process Thought Content: reality based without delusions Suicidal Thoughts: denies suicidal intent; + reports suicidal thoughts and + reports suicidal plan (non specific for outside the hospital, states she is formulating options) Homicidal Thoughts: denies homicidal thoughts Hallucinations: no auditory hallucinations and no visual hallucinations Cognition: recent memory grossly intact, remote memory grossly intact, attention grossly intact and language grossly intact Estimated Intelligence: consistent with education level Insight: + limited insight Judgement: + limited judgement Vital Signs (Past 24 Hours) Last Vital Signs Temp 36.9 C 11/09/21 06:00 Pulse 65 11/09/21 06:56 Resp 16 11/09/21 06:00 BP 103/68 11/09/21 06:56 Pulse Ox 99 11/08/21 06:00 O2 Del Method 11/08/21 06:00 O2 Flow Rate 2 11/02/21 08:29 Results & Data ([facility]) Current Inpatient Medications Current Inpatient Medications: Current Inpatient Medications Acetaminophen (Acetaminophen 325 Mg Tab) 650 mg PO Q4H PRN PRN Reason: Headache or Minor Fever Stop: 12/02/21 19:27 Last Admin: 11/08/21 10:01 Dose: 650 mg Al Hydrox/Mg Hydrox/Simethicone (Aluminum/Magnesium Susp 30 Ml Udc) 30 ml PO Q4H PRN PRN Reason: GI Upset Stop: 12/02/21 19:27 Bismuth Subsalicylate (Bismuth Subsalicylate Liqd 236 Ml) 15 ml PO PRN PRN PRN Reason: Loose Stool Stop: 12/02/21 19:27 Bupropion HCl (Bupropion Xl 150 Mg Tabcr) 150 mg PO QAM [facility] Stop: 12/06/21 08:59 Last Admin: 11/09/21 08:19 Dose: 150 mg Hydroxyzine HCl (Hydroxyzine Hcl 25 Mg Tab) 50 mg PO HSZ PRN PRN Reason: Insomnia Stop: 12/02/21 19:27 Hydroxyzine HCl (Hydroxyzine Hcl 25 Mg Tab) 50 mg PO Q4H PRN PRN Reason: Anxiety Stop: 12/02/21 19:27 Last Admin: 11/09/21 10:09 Dose: 50 mg Lamotrigine (Lamotrigine 25 Mg Tab) 150 mg PO BID [facility] Stop: 12/02/21 20:59 Last Admin: 11/09/21 08:19 Dose: 150 mg Magnesium Hydroxide (Magnesium Hydroxide Susp 30 Ml Udc) 30 ml PO DAILY PRN PRN Reason: Constipation Stop: 12/02/21 19:27 Norethindrone: Non- Formulary Patient's Own Med 1 each N/A HS [facility] Stop: 12/02/21 20:59 Last Admin: 11/08/21 22:10 Dose: 1 each Propranolol HCl (Propranolol Hcl 20 Mg Tab) 40 mg PO BID [facility] Stop: 12/04/21 20:59 Last Admin: 11/09/21 08:20 Dose: 40 mg Quetiapine Fumarate (Quetiapine Fumarate 100 Mg Tablet) 250 mg PO HS [facility] Stop: 12/02/21 21:59 Last Admin: 11/08/21 22:12 Dose: 250 mg Quetiapine Fumarate (Quetiapine Fumarate 25 Mg Tablet) 50 mg PO BIDM [facility] Stop: 12/03/21 07:59 Last Admin: 11/09/21 08:20 Dose: 50 mg Quetiapine Fumarate (Quetiapine Fumarate 25 Mg Tablet) 25 mg PO Q6 PRN PRN Reason: Anxiety/Agitation Stop: 12/03/21 17:59 Last Admin: 11/06/21 10:08 Dose: 25 mg Sodium Chloride (Sodium Chloride 0.65% Na Soln 45 Ml ([place])) 1 - 2 sprays NA PRN PRN PRN Reason: Nasal Dryness/Congestion Stop: 12/02/21 19:27 Mental Health & Subst Abuse Tx Psychiatrist Name of Psychiatrist: [facility] Psychiatrist's Date of Appointment with Psychiatrist: 11/24/21 Time of Appointment with Psychiatrist: 3:20 PM Psychiatric Appointment Comment: via Zoom (call if you prefer in-person) Therapist Name of Therapist: [email or web address] Therapist's Date of Therapist Appointment: 11/14/21 Time of Therapist Appointment: 10:00 AM Therapy Appointment Comment: Resume regular outpatient therapy appointments Post Discharge Appointments Primary Care Physician Name Of Family Doctor: [facility] - Jeremiah Santo PA-C Primary Care Date of Appointment with PCP: 11/15/21 Time of Appointment with PCP: 9:45 AM Provider Appointment Comment: [phone] [place] [id number] Specialist Name of Specialist: [facility] Phone Number for Specialist: [phone] Date of Appointment with Specialist: 11/11/21 Specialty Appointment Comment: Intake will call you on 11/11 for a screening to determine eligibility. Contact Information [facility] [id number]
[2021-11-09] MEDS: QUEtiapine FUMARATE 100 MG TABLET PO SCH (22:29)
[2021-11-09] MEDS: NORETHINDRONE SCH (22:33)
--- NOTE | 2021-11-10 08:44 | Psychiatric Progress Note ---
Date of Service November 10, 2021 Impression / Recommendations Impression 26 yo female with a family history of suicide attempts and bipolar disorder presents with recurrent suicidal thoughts and an impulsive suicide attempt (2nd attempt) 1 day after starting Wellbutrin (she denies activation or related but also noted some restlessness). Of interest occurred while therapist is on vacation. The patient reports clear periods of hypomania alternating with depression. Diagnostically also significant help seeking help rejecting behaviors, splitting and projection consistent with trauma and cluster B traits. 11/10/21: Endorses ongoing improvement in mood and no hopelessness and today reports ongoing chronic suicidal ideation but without plan or intent and is future oriented about starting virtual IOP to learn DBT skills, returning to work next week continuing outpatient therapy and spending time with her friends. Continues to tolerate her medication without any side effects. (1) Bipolar 2 disorder, major depressive episode: (2) Post traumatic stress disorder (PTSD): Plan 11/10/21: Continue with current medications and treatment plan. DBT IOP intake scheduled. Ongoing work regarding safety planning and strategies to manage distress tolerance and chronic suicidal ideation. 11/09/21: Continue with current medications and tx plan. Working on DBT IOP referral given ongoing high levels of SI and self-hatred even after improvement of mood. 11/08/21: Continue with current medications and treatment plan. 11/07/21: Continue with current medications. Ongoing DBT work. Continuing to focus on ways to improve self-efficacy. 11/06/21: Continue with current medications. Discussing DBT strategies to cope with SI and challenging automatic negative thoughts. 11/05/21: increase Wellbutrin to 150 mg XL. Left message updating [facility] provider yesterday afternoon. 11/04/21: will titrate Propranolol to 40 mg BID on a trial basis. outpatient provider updated. If no evidence of activation on Wellbutrin will likely resume the 150 mg XL tomorrow. 11/03/21: The patient was [facility] on q15 min checks (behavioral with suicide precautions) for safety. The patient will participate in group, recreational, and milieu therapies and will be offered additional individual and family sessions as clinically appropriate. Risks/benefits/alternatives reviewed re: current medications including but not limited to risk of toxicity/ in OD, need for ongoing monitoring (TD, metabolic--fasting labs completed, and she is aware of risk of rash and dosing adjusted given combo of Lamictal and OCP). She is actually pleased with her medications overall and would like to continue Wellbutrin trial as previously discussed with provider, she was agreeable to start at Wellbutrin SR 100 mg daily rather than 150 mg XL to monitor for activation. Inventory Assets Strengths: intelligent, employed Needs: increase insight into behavior, DBT Suicide Risk Level Suicide Risk Level: Moderate (q15 min suicide checks) (depression has improved, still with chronic SI but no plan or intent and able to safety contact on the unit agrees to alert staff if SI worsens or she feels unable to remain safe on the unit) Risk Factors Assessment Do You Have Access To A Gun?: No Mental Health Diagnoses: Yes Substance Use Disorders: No Previous Attempt: Yes Family History of Suicide: Yes Previous Psychiatric Hospitalization: No Protective Factors Assessment Employed: Yes ([employer]) Good Rapport with Provider: Yes Interval History Identifying Information DEANNE SQUIRES is a 26-year-old F who currently lives alone in [place], has a history of one prior suicide attempt, and was admitted on 11/02/21 19:29 on a 201 voluntary commitment s/p Lexapro OD. Chief Complaint "I am okay". Review of Systems Sleep Information Total Hours of Sleep: 6.75 Meal Information Percent Meal Consumed - Breakfast: 85 Percent Meal Consumed - Lunch: 100 Percent Meal Consumed - Dinner: 100 Subjective Subjective Patient was seen & assessed and interval progress reviewed with treatment team nursing and social work. Today she states her mood remains positive and improved from when she arrived though continues to have chronic suicidal ideation. She notes that the suicidal ideation is "always there" as it "has been for many years" but that the intensity of it varies throughout the day. Today she feels the intensity is low and she denies any plans nor intent. She feels she would be able to be safe at home though notes she cannot commit to safety long-term as she does not know what will happen with her chronic suicidal thoughts. However she notes she also does not feel that remaining in the hospital for a more extended period of time would help these chronic suicidal thoughts and she is willing to do DBT IOP marked with social work today to set up an intake for next Sunday. She was observed by nursing to face time with a friend last night and was smiling and laughing. States she also spoke with her outpatient therapist today which she found helpful. Still has some anxiety for which her as needed's are somewhat helpful she feels her anxiety is related to being in the hospital as she notes it is not a "internal anxiety" but an external anxiety a sense of wanting to be outside. Physical Exam Psychiatric Orientation: alert and oriented x 3 Apperance: appropriately dressed and appropriately groomed Eye Contact: good eye contact Motor Behavior: no abnormal motor movements Speech: normal rate/rhythm/volume of speech Affect: euthymic affect Mood: + anxious mood; no depressed mood Thought Process: goal directed thought process Thought Content: reality based without delusions and + hopelessness Suicidal Thoughts: denies suicidal plan and denies suicidal intent; + reports suicidal thoughts (Chronic SI she reports this has reduced in intensity today) Homicidal Thoughts: denies homicidal thoughts Hallucinations: no auditory hallucinations and no visual hallucinations Cognition: recent memory grossly intact, remote memory grossly intact, attention grossly intact and language grossly intact Estimated Intelligence: consistent with education level Insight: + limited insight Judgement: + limited judgement Vital Signs (Past 24 Hours) Last Vital Signs Temp 36.9 C 11/10/21 06:00 Pulse 79 11/10/21 06:53 Resp 16 11/10/21 06:00 BP 111/76 11/10/21 06:53 Pulse Ox 99 11/10/21 06:00 O2 Del Method 11/10/21 06:00 O2 Flow Rate 2 11/02/21 08:29 Results & Data ([facility]) Current Inpatient Medications Current Inpatient Medications: Current Inpatient Medications Acetaminophen (Acetaminophen 325 Mg Tab) 650 mg PO Q4H PRN PRN Reason: Headache or Minor Fever Stop: 12/02/21 19:27 Last Admin: 11/08/21 10:01 Dose: 650 mg Al Hydrox/Mg Hydrox/Simethicone (Aluminum/Magnesium Susp 30 Ml Udc) 30 ml PO Q4H PRN PRN Reason: GI Upset Stop: 12/02/21 19:27 Bismuth Subsalicylate (Bismuth Subsalicylate Liqd 236 Ml) 15 ml PO PRN PRN PRN Reason: Loose Stool Stop: 12/02/21 19:27 Bupropion HCl (Bupropion Xl 150 Mg Tabcr) 150 mg PO QAM MARTHA Stop: 12/06/21 08:59 Last Admin: 11/09/21 08:19 Dose: 150 mg Hydroxyzine HCl (Hydroxyzine Hcl 25 Mg Tab) 50 mg PO HSZ PRN PRN Reason: Insomnia Stop: 12/02/21 19:27 Hydroxyzine HCl (Hydroxyzine Hcl 25 Mg Tab) 50 mg PO Q4H PRN PRN Reason: Anxiety Stop: 12/02/21 19:27 Last Admin: 11/09/21 10:09 Dose: 50 mg Lamotrigine (Lamotrigine 25 Mg Tab) 150 mg PO BID MARTHA Stop: 12/02/21 20:59 Last Admin: 11/09/21 22:30 Dose: 150 mg Magnesium Hydroxide (Magnesium Hydroxide Susp 30 Ml Udc) 30 ml PO DAILY PRN PRN Reason: Constipation Stop: 12/02/21 19:27 Norethindrone: Non- Formulary Patient's Own Med 1 each N/A HS MARTHA Stop: 12/02/21 20:59 Last Admin: 11/09/21 22:33 Dose: Not Given Propranolol HCl (Propranolol Hcl 20 Mg Tab) 40 mg PO BID MARTHA Stop: 12/04/21 20:59 Last Admin: 11/09/21 22:29 Dose: 40 mg Quetiapine Fumarate (Quetiapine Fumarate 100 Mg Tablet) 250 mg PO HS MARTHA Stop: 12/02/21 21:59 Last Admin: 11/09/21 22:29 Dose: 250 mg Quetiapine Fumarate (Quetiapine Fumarate 25 Mg Tablet) [facility] Stop: 12/03/21 07:59 Last Admin: 11/09/21 17:41 Dose: 50 mg Quetiapine Fumarate (Quetiapine Fumarate 25 Mg Tablet) 25 mg PO Q6 PRN PRN Reason: Anxiety/Agitation Stop: 12/03/21 17:59 Last Admin: 11/06/21 10:08 Dose: 25 mg Sodium Chloride (Sodium Chloride 0.65% Na Soln 45 Ml ([place])) 1 - 2 sprays NA PRN PRN PRN Reason: Nasal Dryness/Congestion Stop: 12/02/21 19:27 Mental Health & Subst Abuse Tx Psychiatrist Name of Psychiatrist: Matthias Hamilton Psychiatrist's Date of Appointment with Psychiatrist: 11/24/21 Time of Appointment with Psychiatrist: 3:20 PM Psychiatric Appointment Comment: via Zoom (call if you prefer in-person) Therapist Name of Therapist: [facility] - Sujata Freeman Therapist's Date of Therapist Appointment: 11/14/21 Time of Therapist Appointment: 10:00 AM Therapy Appointment Comment: Resume regular outpatient therapy appointments Post Discharge Appointments Primary Care Physician Name Of Family Doctor: [facility] - Jeremiah Santo PA-C Primary Care Date of Appointment with PCP: 11/15/21 Time of Appointment with PCP: 9:45 AM Provider Appointment Comment: [phone] [place] [address] Specialist Name of Specialist: [facility] - DBT Phone Number for Specialist: [phone] Date of Appointment with Specialist: 11/11/21 Specialty Appointment Comment: Intake will call you on 11/11 for a screening to determine eligibility. Other #1: Name of Aftercare Appointment: Tomasa Ibarra - virtual DBT/IOP Phone Number of Aftercare Appointment: [phone] Date of Aftercare Appointment: 11/15/21 Time of Aftercare Appointment: 2 PM Aftercare Appointment Comment: Please complete intake paperwork to be emailed to you prior to evaluation. Contact Information Discharge Discharge Address: [address] [id number]
[2021-11-10] MEDS: PROPRANOLOL HCL 20 MG TAB PO SCH ×2 (08:49→22:08)
[2021-11-10] MEDS: buPROPion XL 150 MG TABCR PO SCH (08:49)
[2021-11-10] MEDS: lamoTRIgine 25 MG TAB PO SCH ×2 (08:49→22:08)
[2021-11-10] MEDS: QUEtiapine FUMARATE 25 MG TABLET PO SCH ×2 (08:51→17:24)
[2021-11-10] MEDS: QUEtiapine FUMARATE 25 MG TABLET PO PRN (10:55)
[2021-11-10] MEDS: hydrOXYzine HCl 25 MG TAB PO PRN (14:22)
[2021-11-10] MEDS: QUEtiapine FUMARATE 100 MG TABLET PO SCH (22:05)
[2021-11-10] MEDS: NORETHINDRONE SCH (22:07)
[2021-11-11] MEDS: hydrOXYzine HCl 25 MG TAB PO PRN (01:37)
[2021-11-11] MEDS: buPROPion XL 150 MG TABCR PO SCH (08:13)
[2021-11-11] MEDS: PROPRANOLOL HCL 20 MG TAB PO SCH (08:14)
[2021-11-11] MEDS: lamoTRIgine 25 MG TAB PO SCH (08:14)
[2021-11-11] MEDS: QUEtiapine FUMARATE 25 MG TABLET PO SCH (08:38)
--- NOTE | 2021-11-11 09:41 | Discharge Summary ---
Date of Service November 11, 2021 History of Present Illness Bri states that she has dealt with suicidal thoughts "for years" and actually attempted to drown herself in the bathtub last year (after her first therapy session) but "changed my mind." She states that she chronically has thoughts to self-harm/OD despite seeing her therapist twice a week. She denied any specific stressors as "overall my life is the same" and she identifies friendships, keeps in touch with family, denies financial concerns. 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 She reported to ED at she took approximately 170 mg of Lexapro or 30 tabs. She specifically chose the Lexapro as she was no longer prescribed it. When I mentioned holding the propranolol as it can slow heartrate she states that she would never take extra of it as it helps with her migraines. She stated she started to not feel well and called two of her friends who also work at the [employer] and they brought her to the ED after she vomited. At the end of the interview she stated that her therapist is on vacation this week so she did not have her regular twice a week sessions. She wasn't particularly forthcoming or endorsing vegetative symptoms of depression but certainly alludes to anergia when not working. She has experienced hypomanic symptoms in the past, "before my Lamictal was 300 mg" where for up to a week or more at a time she would "spend money left and right, sleep with a bunch of people, and be awake awake awake." The depression seems harder to deal with at this time. Physical Exam Vital Signs (Past 24 Hours) Last Vital Signs Temp 36.8 C 11/11/21 06:00 Pulse 88 11/11/21 06:39 Resp 16 11/11/21 06:00 BP 118/72 11/11/21 08:12 Pulse Ox 99 11/11/21 06:00 O2 Del Method 11/11/21 06:00 O2 Flow Rate 2 11/02/21 08:29 See admission H&P and DOD summary. Principal Diagnosis Bipolar affective disorder, depressive episode Psychiatric Data See daily stay summary. In short, patient was engaged with the social/therapeutic milieu of the unit, safety was maintained and the patient was cooperative with care. Medication changes included initiation of Wellbutrin and they tolerated this well. A family session was held and safety plan was completed prior to discharge. In the days leading up to discharge she continued to have ongoing suicidal ideation which she felt was consistent with her chronic level of SI as she found that her mood was improving and felt hopeful again. Notably even during periods of time when she endorsed chronic suicidal ideation she was future-oriented and agreed to engage with an intensive outpatient program focused on DBT skills that will meet four days per week in addition to her outpatient therapy as we discussed that DBT is the best treatment option for chronic SI, especially as she identified self-hatred and cluster B traits/trauma responses of emptiness as most significantly contributing to her suicidal ideation as she feels it is not related to her mood. She actively and insightfully participated in safety planning and in discussions about ways to seek support and recognizing warning signs and utilizing coping skills. Reviewed mobile apps that could be used for additional ways to have their safety plan and contacts easily available should thoughts of SI re-emerge in the future. Reviewed importance of seeking emergency care should SI intensify, worsen or should they feel unsafe in the future which they agree to do. On the day of discharge she stated her mood was "good" and noted "I'm finally starting to have all these normal feelings again, they're coming back" and noted that she felt "much more hopeful" and remained future- oriented including spending time with her dog, seeing friends, getting back to work, and settled at her house and engaging in aftercare appointments for psychiatry, therapy and starting her DBT IOP in a few days. Day of Discharge Assessment Today the patient voices readiness for discharge. They note improvement in mood and anxiety. She denies any current SI. She does have chronic intermittent SI but denies any plan or intent related to these thoughts. She denies thoughts of harm to others. Thoughts are organized and they are clinically improved from admission. There is no evidence of psychosis. They improved in the hospital with support and medication adjustments. They agree to take medications as prescribed and keep follow-up appointments. At the time of the discharge they are deemed to be stable and appropriate for outpatient level of care. They are not deemed to be at imminent risk of harm to self or others. They are aware of emergency and crisis services. Knows to call 911 or go to nearest emergency care center if in a crisis which cannot be handled as an outpatient. Transition of Care Transition Of Care Record: was reviewed with the patient Advance Directives Advance Directives Information Provided: Yes Advance Directives: No Mental Health Advance Directive: No Advance Directives on File: No Living Will: No Power of Register Of Deeds: No Advance Directives Reason:: Declines as Mental Health Visit. Suicide Risk Level Suicide Risk Level Comments: Acute risk is low given improvement in mood and denial of SI, lack of access to lethal means, improvement in sleep, hopefulness, new coping skills. Chronic risk is moderate to high given psychiatric co-morbid diagnoses, periods of impulsivity, prior attempt, emotional reactivity, chronic SI, mood disorder, cluster B traits, hx of trauma, family history of by suicide but also with protective factors including strong social support and a job she enjoys. Counseled on ways to reduce acute and chronic risk including engaging with outpatient providers, using safety plan if needed, utilizing supports, taking medication, and using coping skills and engaging with DBT IOP. Modifiable risk factors of acute SI and depression were addressed during hospitalization through development of new coping skills, family meeting, safety planning, and medication adjustments. Risk factors that can be mitigated have been addressed. Ongoing outpatient therapy with a dialectical component is the core treatment for chronic SI and the most evidence-based treatment to modify acute and chronic risk of self-harm related to cluster B traits which we reviewed and she is going to participate in. Additionally ongoing inpatient hospitalization would be counter-therapeutic at this time as she desires discharge and mood symptoms have improved and can lead to more maladaptive coping skills. Also discussed resources and ways to add additional protective factors and positive supports to their life to reduce elements of chronic risk including eventually returning to college to finish her degree which she would like to do. Risk Factors Assessment Do You Have Access To A Gun?: No Mental Health Diagnoses: Yes Substance Use Disorders: No Previous Attempt: Yes Family History of Suicide: Yes Previous Psychiatric Hospitalization: No Hopelessness: No Protective Factors Assessment Employed: Yes ([employer]) Stable Relationships: Yes Supportive Family: Yes Good Rapport with Provider: Yes Discharge Data Lab Results 11/01/21 11/01/21 11/01/21 23:30 23:45 23:45 WBC 14.13 H RBC 4.38 Hgb 11.7 L Hct 35.1 MCV 80.1 MCH 26.7 MCHC 33.3 RDW Std Deviation 45.1 RDW Coeff of Sara 15.5 H Plt Count 273 MPV 10.3 Immature Gran % (Auto) 0.4 Neut % (Auto) 65.7 Lymph % (Auto) 25.2 [place] % (Auto) 8.2 Eos % (Auto) 0.3 Baso % (Auto) 0.2 Neut # (Auto) 9.28 H Lymph # (Auto) 3.56 H Laurel # (Auto) 1.16 H Eos # (Auto) 0.04 Baso # (Auto) 0.03 Immature Gran # (Auto) 0.06 H Sodium 135 L Potassium 3.8 Chloride 104 Carbon Dioxide 22 Anion Gap 9 BUN 11 Creatinine 0.85 Est Cr Clr Drug Dosing 101.6 Est GFR ( Amer) 110.4 Est GFR (Non-Af Amer) 95.2 BUN/Creatinine Ratio 12.9 Glucose 104 H Fasting Glucose Calcium 9.3 Total Bilirubin 0.4 AST 13 ALT 17 Alkaline Phosphatase 67 Total Protein 7.5 Albumin 4.6 Globulin 2.9 Albumin/Globulin Ratio 1.6 Triglycerides Cholesterol LDL Cholesterol, Calc VLDL Cholesterol, Calc HDL Cholesterol Cholesterol/HDL Ratio TSH Urine Color Urine Appearance Urine pH Ur Specific [place] Urine Protein Urine Glucose (UA) Urine Ketones Urine Blood Urine Nitrite Urine Bilirubin Urine Urobilinogen Ur Leukocyte Esterase Urine WBC (Auto) Urine RBC (Auto) U Hyaline Cast (Auto) U Epithel Cells (Auto) Urine Bacteria (Auto) Urine Test Salicylates Urine Opiates Screen Ur Methadone, Qual Acetaminophen Urine Barbiturates Ur Phencyclidine (PCP) U Amphetamin/Meth Scrn MDMA (Ecstasy) Screen U Benzodiazepines Scrn Ur Cocaine Metabolite U Marijuana (THC) Screen Ethyl Alcohol mg/dL SARS-CoV-2, RNA, NAAT NEGATIVE 11/01/21 11/01/21 11/01/21 23:45 23:45 23:45 WBC RBC Hgb Hct MCV MCH MCHC RDW Std Deviation RDW Coeff of Sara Plt Count MPV Immature Gran % (Auto) Neut % (Auto) Lymph % (Auto) [place] % (Auto) Eos % (Auto) Baso % (Auto) Neut # (Auto) Lymph # (Auto) [place] # (Auto) Eos # (Auto) Baso # (Auto) Immature Gran # (Auto) Sodium Potassium Chloride Carbon Dioxide Anion Gap BUN Creatinine Est Cr Clr Drug Dosing Est GFR ( Amer) Est GFR (Non-Af Amer) BUN/Creatinine Ratio Glucose Fasting Glucose Calcium Total Bilirubin AST ALT Alkaline Phosphatase Total Protein Albumin Globulin Albumin/Globulin Ratio Triglycerides Cholesterol LDL Cholesterol, Calc VLDL Cholesterol, Calc HDL Cholesterol Cholesterol/HDL Ratio TSH 1.534 Urine Color Urine Appearance Urine pH Ur Specific [place] Urine Protein Urine Glucose (UA) Urine Ketones Urine Blood Urine Nitrite Urine Bilirubin Urine Urobilinogen Ur Leukocyte Esterase Urine WBC (Auto) Urine RBC (Auto) U Hyaline Cast (Auto) U Epithel Cells (Auto) Urine Bacteria (Auto) Urine Test Salicylates < 3.0 L Urine Opiates Screen Ur Methadone, Qual Acetaminophen < 3 L Urine Barbiturates Ur Phencyclidine (PCP) U Amphetamin/Meth Scrn MDMA (Ecstasy) Screen U Benzodiazepines Scrn Ur Cocaine Metabolite U Marijuana (THC) Screen Ethyl Alcohol mg/dL < 10.0 SARS-CoV-2, RNA, NAAT 11/02/21 11/02/21 11/02/21 04:55 04:55 04:55 WBC RBC Hgb Hct MCV MCH MCHC RDW Std Deviation RDW Coeff of Sara Plt Count MPV Immature Gran % (Auto) Neut % (Auto) Lymph % (Auto) [place] % (Auto) Eos % (Auto) Baso % (Auto) Neut # (Auto) Lymph # (Auto) [place] # (Auto) Eos # (Auto) Baso # (Auto) Immature Gran # (Auto) Sodium Potassium Chloride Carbon Dioxide Anion Gap BUN Creatinine Est Cr Clr Drug Dosing Est GFR ( Amer) Est GFR (Non-Af Amer) BUN/Creatinine Ratio Glucose Fasting Glucose Calcium Total Bilirubin AST ALT Alkaline Phosphatase Total Protein Albumin Globulin Albumin/Globulin Ratio Triglycerides Cholesterol LDL Cholesterol, Calc VLDL Cholesterol, Calc HDL Cholesterol Cholesterol/HDL Ratio TSH Urine Color Dark Yellow Urine Appearance Clear Urine pH 5.0 Ur Specific [place] 1.033 H Urine Protein Trace H Urine Glucose (UA) Negative Urine Ketones Trace H Urine Blood Negative Urine Nitrite Negative Urine Bilirubin 1+ H Urine Urobilinogen Negative Ur Leukocyte Esterase Trace H Urine WBC (Auto) 5-10 H Urine RBC (Auto) 0-4 U Hyaline Cast (Auto) 1-5 U Epithel Cells (Auto) >30 H Urine Bacteria (Auto) Negative Urine Test Negative Salicylates Urine Opiates Screen Neg Ur Methadone, Qual Neg Acetaminophen Urine Barbiturates Neg Ur Phencyclidine (PCP) Neg U Amphetamin/Meth Scrn Neg MDMA (Ecstasy) Screen Pos H U Benzodiazepines Scrn Neg Ur Cocaine Metabolite Neg U Marijuana (THC) Screen Neg Ethyl Alcohol mg/dL SARS-CoV-2, RNA, NAAT 11/03/21 08:06 WBC RBC Hgb Hct MCV MCH MCHC RDW Std Deviation RDW Coeff of Sara Plt Count MPV Immature Gran % (Auto) Neut % (Auto) Lymph % (Auto) [place] % (Auto) Eos % (Auto) Baso % (Auto) Neut # (Auto) Lymph # (Auto) [place] # (Auto) Eos # (Auto) Baso # (Auto) Immature Gran # (Auto) Sodium Potassium Chloride Carbon Dioxide Anion Gap BUN Creatinine Est Cr Clr Drug Dosing Est GFR ( Amer) Est GFR (Non-Af Amer) BUN/Creatinine Ratio Glucose Fasting Glucose 89 Calcium Total Bilirubin AST ALT Alkaline Phosphatase Total Protein Albumin Globulin Albumin/Globulin Ratio Triglycerides 114 Cholesterol 214 H LDL Cholesterol, Calc 143 VLDL Cholesterol, Calc 23 HDL Cholesterol 48 Cholesterol/HDL Ratio 4.5 TSH Urine Color Urine Appearance Urine pH Ur Specific [place] Urine Protein Urine Glucose (UA) Urine Ketones Urine Blood Urine Nitrite Urine Bilirubin Urine Urobilinogen Ur Leukocyte Esterase Urine WBC (Auto) Urine RBC (Auto) U Hyaline Cast (Auto) U Epithel Cells (Auto) Urine Bacteria (Auto) Urine Test Salicylates Urine Opiates Screen Ur Methadone, Qual Acetaminophen Urine Barbiturates Ur Phencyclidine (PCP) U Amphetamin/Meth Scrn MDMA (Ecstasy) Screen U Benzodiazepines Scrn Ur Cocaine Metabolite U Marijuana (THC) Screen Ethyl Alcohol mg/dL SARS-CoV-2, RNA, NAAT Hospital Course (1) Bipolar 2 disorder, major depressive episode: (2) Post traumatic stress disorder (PTSD): Plan 11/10/21: Continue with current medications and treatment plan. DBT IOP intake scheduled. Ongoing work regarding safety planning and strategies to manage distress tolerance and chronic suicidal ideation. 11/09/21: Continue with current medications and tx plan. Working on DBT IOP referral given ongoing high levels of SI and self-hatred even after improvement of mood. 11/08/21: Continue with current medications and treatment plan. 11/07/21: Continue with current medications. Ongoing DBT work. Continuing to focus on ways to improve self-efficacy. 11/06/21: Continue with current medications. Discussing DBT strategies to cope with SI and challenging automatic negative thoughts. 11/05/21: increase Wellbutrin to 150 mg XL. Left message updating [facility] provider yesterday afternoon. 11/04/21: will titrate Propranolol to 40 mg BID on a trial basis. outpatient provider updated. If no evidence of activation on Wellbutrin will likely resume the 150 mg XL tomorrow. 11/03/21: The patient was admitted to the [facility] ([facility] mental [facility] unit) on q15 min checks (behavioral with suicide precautions) for safety. The patient will participate in group, recreational, and milieu therapies and will be offered additional individual and family sessions as clinically appropriate. Risks/benefits/alternatives reviewed re: current medications including but not limited to risk of toxicity/ in OD, need for ongoing monitoring (TD, metabolic--fasting labs completed, and she is aware of risk of rash and dosing adjusted given combo of Lamictal and OCP). She is actually pleased with her medications overall and would like to continue Wellbutrin trial as previously discussed with provider, she was agreeable to start at Wellbutrin SR 100 mg daily rather than 150 mg XL to monitor for activation. Mental Health & Subst Abuse Tx Psychiatrist Name of Psychiatrist: [employer] [facility] Psychiatrist's Date of Appointment with Psychiatrist: 11/24/21 Time of Appointment with Psychiatrist: 3:20 PM Psychiatric Appointment Comment: via Zoom (call if you prefer in-person) Therapist Name of Therapist: [facility] Therapist's Date of Therapist Appointment: 11/14/21 Time of Therapist Appointment: 10:00 AM Therapy Appointment Comment: Resume regular outpatient therapy appointments Post Discharge Appointments Primary Care Physician Name Of Family Doctor: [facility] - Jeremiah Santo PA-C Primary Care Date of Appointment with PCP: 11/15/21 Time of Appointment with PCP: 9:45 AM Provider Appointment Comment: [address] [place] [address] Specialist Name of Specialist: [facility] - DBT Phone Number for Specialist: [phone] Date of Appointment with Specialist: 11/11/21 Specialty Appointment Comment: Intake will call you on 11/11 for a screening to determine eligibility. Contact Information Discharge Discharge Address: [address] [facility] [address] Discharge Plan Discharge Items Patient Disposition: Home - Self-Care Reason For Visit: BIPOLAR DISORDER Discharge Diagnosis: Bipolar Disorder, depressive episode Activity: Resume your previous activity Non-emergency contact: Primary Care Provider, Psychiatrist and Therapist Call non-emergency contact if: you have any medication questions and your symptoms worsen Follow-up/Referrals: PCP,NO [Primary Care Provider] - Diet: Regular Addtl Attending Provider Instructions: Optional Mobile Apps to try: -Suicide Safety Plan -Virtual Hope Box -Panic Grievance And Appeals Specialist SPECIAL CARE INSTRUCTIONS: 1. Follow through with your scheduled aftercare appointments. If unable to keep an appointment, please call to reschedule. 2. Take your medication only as prescribed. Medication should not be changed or stopped without the approval of your doctor. In the event of worsening symptoms or concerns about side effects, contact your doctor immediately. 3. Utilize new healthy coping skills, anger management skills, and stress management skills learned during your hospitalization. Journal feelings and process them with a support person. Identify stressors or situations that may result in relapse, deterioration or inappropriate behaviors and develop a plan to deal with those issues. 4. If your coping skills are ineffective and you are in crisis, contact your outpatient providers for direction. If unable to reach your providers, please call the [facility] CRISIS LINE AT , go to the [facility] walk-in center at [address], [place], or go to the closest Emergency Room. 5. Avoid alcohol and un-prescribed drugs. 6. You have been provided with the Mental Health Advance Directives Pamphlet for your review. 7. Your condition is stable for discharge to outpatient level of care, but recovery is an ongoing process. Ifthoughts to harm yourself or others return, follow the safety plan developed during your stay. Planning for a safe return home includes securing weapons. Our treatment team recommends weaponsbe removed from the home until your outpatient provider reassesses your progress. In rare cases where the items themselvescannot be removed, guns and ammunitionshould be secured separatelyand keys stored by a reliable personoutside of the home. If you were admitted on an involuntary commitment, the police or other legal authorities may be involved in this process. AFTERCARE APPOINTMENTS: * Please call your insurance company prior to your scheduled appointment to confirm your aftercare providers are covered. Take your insurance information to your appointments. WHO TO CALL AND WHEN: Medical Emergencies: For questions or emergencies related to your hospital stay, please contact the Inpatient Behavioral Health Unit at [phone]. A canned food reconditioning inspector is on-call 23/10 for the Behavioral Health Unit for emergencies At any time you feel your situation is an emergency, you may also call 911 immediately. Pending Studies at Discharge: No Stand-Alone Forms: My [facility] Medications and DC Order Prescriptions: New propranolol 40 mg tablet 40 mg PO BID 30 Days Qty: 60 0RF Continued quetiapine [Seroquel] 50 mg Tablet 50 mg PO BID Seroquel 250 mg PO HS lamotrigine [Lamictal] 150 mg Tablet 150 mg PO BID Wellbutrin 150 mg PO DAILY hydroxyzine HCl 25 mg PO Q4 PRN (Reason: Anxiety) Norethin /35E (28) 1 tab PO DAILY Discontinued propranolol 20 mg PO BID Discharge Orders: Discharge Order (Routine); Ordered 11/11/21 Ordered By: Amaris Ibarra Admission Data Admit Date/Time: 11/02/21 19:29 Attending Provider: Nafisa Reynoso Admit Provider: Nafisa Reynoso Primary Care Provider: PCP,NO Other Interventions: Discharge Summary Assessment (RN) Last Done: 11/11/21 09:59 PSY Interdisciplinary Discharge Planning Last Done: 11/11/21 10:41 Coding Level of Care Code 51312 D/C day mgmt > 30 min Diagnoses Bipolar 2 disorder, major depressive episode F31.81 Post traumatic stress disorder (PTSD) F43.10 Time Spent (min) 38
[2021-11-11 15:56] LABS: MDA negative; MDEA negative; MDMA (Ecstasy) Urine, Confirm negative
== END 2021-11-11 10:45 | disposition home or self-care (01) | DRG 885 ==
LOC: ED 23:10 → 3S 11-02 19:29

== ENCOUNTER 2024-09-26 19:51 | Inpatient (IN) ==
--- NOTE | 2024-09-26 20:40 | Emergency Department Note ---
Impression & Plan Depression, Suicidal ideation, Bipolar disorder ED Provider Note ED Provider Note NAME: DEANNE SQUIRES AGE:29 SEX: Female : 1995 ARRIVES VIA: Private vehicle INFORMANT: Patient ED PROVIDER(s): Mavis Wells DO CHIEF COMPLAINT: Referred by her outpatient therapist for mental health evaluation HPI: This is a 29-year-old female who presents emergency department due to concern for mental health evaluation. Patient admits to suicidal ideation over the last few weeks. She states she does have a plan but does not disclose it. Patient does have a prior attempt via overdose 3 years ago. Patient also sees psychiatry as an outpatient in addition to her outpatient counselor/therapist. She states they had recently added Adderall to her current medications. She denies any recent illness or potential side effects. She denies hallucinations or paranoia. PAST MEDICAL HISTORY:See Below PAST SURGICAL HISTORY:See Below FAMILY HISTORY:See Below SOCIAL HISTORY:See Below HOME MEDICATIONS:See Below ALLERGIES:See Below VITALS:See Below PHYSICAL EXAMINATION: GENERAL: alert, well appearing, well nourished, no distress, non-toxic EYE EXAM: normal conjunctiva, PERRL and EOM's grossly intact OROPHARYNX: no exudate, no erythema, lips, buccal mucosa, and tongue normal and mucous membranes are moist NECK: supple, no nuchal rigidity, no adenopathy, non-tender LUNGS: Clear to auscultation. Normal chest wall mechanics, no w/r/r HEART: no murmurs, S1 normal and S2 normal ABDOMEN: abdomen soft, non-tender, normo-active bowel sounds, no masses, no rebound or guarding. SKIN: no rashes, petechiae, orbruising UPPER EXTREMITIES: upper extremities are grossly normal. FROM, nml pulses b/l. LOWER EXTREMITIES: No pitting edema. FROM, nml pulses b/l. NEURO EXAM: Normal sensorium, cranial nerves II-XII grossly intact, normal speech, no facial droop,nogross weakness of arms, no gross weakness of legs. Gross sensation intact. No ataxia. Vital Signs: reviewed and remarkable Differential Diagnosis: mood disorder, suicidal ideation, anxiety, depression, substance abuse, toxidrome, infection, hypoglycemia, electrolyte abnormalities, ICH as well as others were considered. MEDICAL DECISION MAKING: This is 29 yo female who presents for a mental health evaluation. She was afebrile and VS stable. Labs and urine sent per protocol and were reassuring. Mild leukocytosis noted however no symptoms or complaints to suggest infection. Patient seen by case mgmt. Patient would prefer to be admitted to 3[facility]. Plan at this time is for patient to be monitored in the ER overnight until a bed is available in 3S in the morning. Consultation(s): 0130: Patient had been seen and evaluated by case management. Patient would prefer to be admitted to 3 S. Case management did speak with 3 S. who will have a discharge in the morning. One of their staff members did come down and perform a bedside assessment and it will be discussed in the morning during rounds with Dr. Cunningham of psychiatry in anticipation of a discharge. Plan right now is for patient to remain in the emergency department until she could ideally be admitted to 3 S. following their discharge patient in the morning. Patient is aware that if this is unsuccessful, referrals will be made to other places. Given patient's prior history and current complaints, I feel she would benefit from inpatient mental health treatment and should not go home. ER Treatment Provided: See below 0315: Patient signed out to Dr. Castillo pending formal 3S acceptance in the morning. Diagnostics Interpreted By Me: -Laboratory studies: As stated above and show below. Triage Nursing Note Reviewed Prior/Outside Records Reviewed Past Med/Surg History Problem List (Updated 09/27/24 @ 23:04 by Mavis Wells DO) Bipolar disorder (Acute) Suicidal ideation (Acute) Depression (Acute) Post traumatic stress disorder (PTSD) Bipolar 2 disorder, major depressive episode Medical History (Updated 09/27/24 @ 23:04 by Mavis Wells DO) Migraine Drug overdose Social History Smoking Status: Former smoker Preferred Language: Gibraltarian Communication Ability: Effective Portainer Operator Required: No Beliefs That Will Affect Care: None Feels Safe at Home: Yes Gender Identity: Female Assistive Devices: None Allergies Allergies Allergy/AdvReac Type Severity Reaction Status Date / Time No Known Allergies Allergy Unverified 11/02/21 00:02 Home Meds Home Medications Medication Instructions Recorded Confirmed clonazepam 0.5 mg tablet 0.5 mg PO BID PRN Anxiety 09/13/22 09/26/24 lamotrigine 200 mg tablet 200 mg PO DAILY 09/13/22 09/26/24 lurasidone 60 mg tablet (Latuda) 80 mg PO QDD 09/13/22 09/27/24 propranolol 40 mg tablet 40 mg PO AMPM 09/13/22 09/26/24 Adderall 15 mg PO DAILY 09/26/24 09/26/24 atomoxetine 100 mg capsule 100 mg PO QAM 09/27/24 09/27/24 (Strattera) atomoxetine 60 mg capsule 50 mg PO 09/27/24 (Strattera) Results & Data (ED) Vital Signs Vital Signs - 24 hr 09/27/24 08:28 Pulse Rate [Right Finger] 110 H Pulse Rhythm [Right Finger] Regular Pulse Strength [Right Finger] Normal Respiratory Rate 19 Respiratory Effort / Characteristics Non-Labored Spontaneous Respiratory Depth Normal Respiratory Pattern Regular Blood Pressure [Left Arm] 117/72 Blood Pressure Mean [Left Arm] 87 Blood Pressure Position [Left Arm] Sitting Pulse Oximetry 96 Oxygen Delivery Method Room Air Laboratory Data 09/26/24 20:32 09/26/24 20:32 Lab Results 09/26/24 09/26/24 Range/Units 20:32 20:35 WBC 13.12 H (4.8-10.8) K/ul RBC 4.73 (4.20-5.40) M/uL Hgb 13.8 (12.0-16.0) g/dl Hct 39.6 (37.0-47.0) % MCV 83.7 (80.0-100.0) fL MCH 29.2 (25.0-34.0) pg MCHC 34.8 (32.0-36.0) g/dL RDW Std Deviation 41.0 (36.4-46.3) fL RDW Coeff of Sara 13.4 (11.5-14.5) % Plt Count 233 (130-400) K/uL MPV 10.7 (9.4-12.4) fL Immature Gran % (Auto) 0.5 % Neut % (Auto) 59.6 % Lymph % (Auto) 30.9 % [place] % (Auto) 8.4 % Eos % (Auto) 0.2 % Baso % (Auto) 0.4 % Neut # (Auto) 7.82 H (1.40-6.50) K/uL Lymph # (Auto) 4.06 H (1.20-3.40) K/uL [place] # (Auto) 1.10 H (0.11-0.59) K/uL Eos # (Auto) 0.03 (0.00-0.50) K/uL Baso # (Auto) 0.05 (0.00-0.20) K/uL Immature Gran # (Auto) 0.06 (0.01-0.20) K/uL Sodium 136 (136-145) mmol/L Potassium 3.7 (3.5-5.1) mmol/L Chloride 106 (98-107) mmol/L Carbon Dioxide 22 (21-32) mmol/L Anion Gap 8 (3-11) BUN 10 (6-23) mg/dl Creatinine 0.79 (0.6-1.2) mg/dl Est Cr Clr Drug Dosing 107.1 ml/min eGFR 104.43 BUN/Creatinine Ratio 12.7 (10-20) Glucose 116 H (70-99(Fasting)) mg/dl Calcium 9.9 (8.6-10.3) mg/dl Total Bilirubin 0.4 (0.2-1.0) mg/dl AST 15 (13-39) U/L ALT 16 (7-52) U/L Alkaline Phosphatase 65 (34-104) U/L Total Protein 7.7 (6.0-8.3) gm/dl Albumin 4.4 (3.4-5.0) gm/dl Globulin 3.3 (2.5-4.0) gm/dl Albumin/Globulin Ratio 1.3 (0.9-2) TSH 2.175 (0.300-4.500) uIu/ml HCG, Qual Negative (Negative) Urine Color Yellow Urine Appearance Clear (Clear) Urine pH 5.5 (4.5-7.5) Ur Specific [place] 1.007 (1.000-1.030) Urine Protein Negative (Negative) Urine Glucose (UA) Negative (Negative) Urine Ketones Negative (Negative) Urine Blood Negative (Negative) Urine Nitrite Negative (Negative) Urine Bilirubin Negative (Negative) Urine Urobilinogen Negative (Negative) Ur Leukocyte Esterase Trace H (Negative) Urine WBC (Auto) 0-5 (0-5) /hpf Urine RBC (Auto) 0-2 (0-2) /hpf U Hyaline Cast (Auto) 0-2 (0-2) /lpf U Epithel Cells (Auto) 0-2 (0-2) /hpf Urine Bacteria (Auto) None Seen (None Seen) Urine Comment Salicylates < 3.0 L (3.0-30) mg/dl Urine Opiates Screen Neg (Neg) Ur Methadone, Qual Neg (Neg) Urine Fentanyl Screen Neg (Neg) Acetaminophen < 3 L (10-30) ug/ml Urine Barbiturates Neg (Neg) Ur Phencyclidine (PCP) Neg (Neg) U Amphetamin/Meth Scrn Pos H (Neg) MDMA (Ecstasy) Screen Neg (Neg) U Benzodiazepines Scrn Neg (Neg) Ur Cocaine Metabolite Neg (Neg) U Marijuana (THC) Screen Neg (Neg) Ethyl Alcohol mg/dL < 10.0 (<10.0) mg/dl SARS-CoV-2, RNA, NAAT NEGATIVE (NEGATIVE) Administered Medications Clonazepam (Clonazepam 0.5 Mg Tab) 0.5 mg PO DAILY PRN PRN Reason: Anxiety Stop: 10/27/24 21:16 Last Admin: 09/27/24 21:31 Dose: 0.5 mg Documented By: TIMOTHY Lamotrigine (Lamotrigine 100 Mg Tab) 200 mg PO [facility]; Protocol Stop: 10/27/24 21:59 Last Admin: 09/27/24 21:31 Dose: 200 mg Documented By: TIMOTHY Lurasidone HCl (Lurasidone Hcl 20 Mg Tab) 80 mg PO DAILY [facility] Stop: 10/27/24 17:29 Last Admin: 09/27/24 17:48 Dose: 80 mg Documented By: TIM Propranolol HCl (Propranolol Hcl 20 Mg Tab) 40 mg PO BID [facility] Stop: 10/27/24 15:59 Last Admin: 09/27/24 17:19 Dose: 40 mg Documented By: TIM Discontinued Medications Clonazepam (Clonazepam 0.5 Mg Tab) 0.5 mg PO NOW [facility] Stop: 09/26/24 22:00 Last Admin: 09/26/24 22:05 Dose: 0.5 mg Documented By: JAYDON Gabapentin (Gabapentin 400 Mg Cap) 400 mg PO TID [facility] Stop: 10/27/24 08:59 Last Admin: 09/27/24 14:50 Dose: Not Given Documented By: Admin: 09/27/24 08:21 Dose: 400 mg Documented By: VALENTÍN Lamotrigine (Lamotrigine 100 Mg Tab) 200 mg PO QAM [facility]; Protocol Stop: 10/27/24 08:59 Last Admin: 09/27/24 08:21 Dose: 200 mg Documented By: VALENTÍN Lurasidone HCl (Lurasidone Hcl 20 Mg Tab) 60 mg PO DAILY [facility] Stop: 10/27/24 08:59 Last Admin: 09/27/24 08:21 Dose: 60 mg Documented By: VALENTÍN Propranolol HCl (Propranolol Hcl 20 Mg Tab) 40 mg PO BID [facility] Stop: 10/27/24 08:59 Last Admin: 09/27/24 08:22 Dose: 40 mg Documented By: VALENTÍN Trazodone HCl (Trazodone Hcl 100 Mg Tab) 250 mg PO NOW [facility] Stop: 09/27/24 01:35 Last Admin: 09/27/24 02:15 Dose: 250 mg Documented By: KAVITHA Discharge Plan Visit Data Chief Complaint: Mental Health Evaluation Stated Complaint: [facility] ED Provider: Carmen Lopez Discharge Problem: Depression, Suicidal ideation, Bipolar disorder Patient Disposition: Admitted As Inpatient Condition: Good Discharge Instructions Interventions: ED Discharge Assessment Last Done: 09/27/24 14:56
[2024-09-26 20:52] LABS: Appearance Urine Clear (Clear); Bacteria Urine Automated None Seen (None Seen); Cast Urine Automated 0-2 /lpf (0-2); Epithelial Cell Urine Auto 0-2 /hpf (0-2); Glucose Urine UA Negative (Negative); RBC Urine Automated 0-2 /hpf (0-2); WBC Urine Automated 0-5 /hpf (0-5)
[2024-09-26 20:56] LABS: Hematocrit (blood only) 39.6 % (37.0-47.0); Hemoglobin 13.8 g/dl (12.0-16.0); Immature Granulocytes # (auto) 0.06 K/uL (0.01-0.20); Immature Granulocytes % (auto) 0.5 %; Mean Corpuscular Hemoglobin 29.2 pg (25.0-34.0); Mean Corpuscular Volume 83.7 fL (80.0-100.0); Platelet Count 233 K/uL (130-400); RDW Standard Deviation 41.0 fL (36.4-46.3); Red Blood Count 4.73 M/uL (4.20-5.40); White Blood Count 13.12 K/ul (4.8-10.8)
[2024-09-26 21:08] LABS: Pregnancy Test, Serum Negative (Negative)
[2024-09-26 21:09] LABS: Alanine Aminotransferase 16.0 U/L (7-52); Albumin Globulin Ratio 1.3 (0.9-2); Alkaline Phosphatase 65.0 U/L (34-104); Anion Gap 8.0 (3-11); Bilirubin,Total 0.4 mg/dl (0.2-1.0); Blood Urea Nitrogen 10.0 mg/dl (6-23); Calcium 9.9 mg/dl (8.6-10.3); Carbon Dioxide 22.0 mmol/L (21-32); Chloride 106.0 mmol/L (98-107); Creatinine Clr Calc Pharmacy 107.1 ml/min; Globulin 3.3 gm/dl (2.5-4.0); Glucose 116.0 mg/dl (70-99(Fasting)); Potassium 3.7 mmol/L (3.5-5.1); Sodium 136.0 mmol/L (136-145); Total Protein 7.7 gm/dl (6.0-8.3)
[2024-09-26 21:19] LABS: Acetaminophen < 3 ug/ml (10-30); Salicylate < 3.0 mg/dl (3.0-30)
[2024-09-26 21:24] LABS: Thyroid Stimulating Hormone 2.175 uIu/ml (0.300-4.500)
[2024-09-26 21:32] LABS: Amphetamines+Metham, Urine Pos (Neg); MDMA (Ecstacy), Urine Neg (Neg); Marijuana, Urine Neg (Neg)
[2024-09-26] MEDS: clonazePAM 0.5 MG TAB PO STA (22:05)
[2024-09-27] MEDS ORDERED: clonazePAM 0.5 MG TAB PO PRN (01:34)
--- NOTE | 2024-09-27 03:26 | Emergency Department Note ---
ED Visit Note Received signout from Dr. Wells. Patient with depression suicidal ideation. Patient's blood work deemed medically cleared by prior provider. Patient would prefer admission to 3 S. but no current bed. Home medications ordered. Patient was signed out to Dr. Lopez pending reevaluation and disposition. .
--- NOTE | 2024-09-27 07:41 | Emergency Department Note ---
ED Visit Note I received this patient in signout at the change of shift from pending bed availability at 3 S. bed availability on 3 S. patient is resting comfortably. Patient is resting comfortably. She was observed for most of the morning and accepted to 3 S. after they had a patient discharge. Patient was signed and on a 201. Please refer to previous documentation for further details of the history, physical and visit. .
[2024-09-27] MEDS: LURASIDONE HCL 20 MG TAB PO SCH ×2 (08:21→17:48)
[2024-09-27] MEDS: lamoTRIgine 100 MG TAB PO SCH ×2 (08:21→21:31)
[2024-09-27] MEDS: GABAPENTIN 400 MG CAP PO SCH (08:21)
[2024-09-27] MEDS: PROPRANOLOL HCL 20 MG TAB PO SCH ×2 (08:22→17:19)
[2024-09-27] MEDS ORDERED: ALUMINUM/MAGNESIUM SUSP 30 ML UDC PO PRN (13:52)
[2024-09-27] MEDS ORDERED: MAGNESIUM HYDROXIDE SUSP 30 ML UDC PO PRN (13:52)
[2024-09-27] MEDS ORDERED: SODIUM CHLORIDE 0.65% NA SOLN 45 ML (OCEAN) PRN (13:52)
[2024-09-27] MEDS ORDERED: BISMUTH SUBSALICYLATE 262 MG CHEW PO PRN (13:52)
[2024-09-27] MEDS ORDERED: LURASIDONE HCL 20 MG TAB PO SCH (17:45)
[2024-09-27] MEDS: clonazePAM 0.5 MG TAB PO PRN (21:31)
[2024-09-28] MEDS: ATOMOXETINE HCL 25 MG CAPSULE PO SCH (08:38)
[2024-09-28] MEDS: lamoTRIgine 25 MG TAB PO SCH (08:43)
[2024-09-28] MEDS ORDERED: lamoTRIgine 100 MG TAB PO SCH (09:00)
[2024-09-28] MEDS ORDERED: ALBUTEROL HFA 8 GM INHALER INH PRN (10:54)
[2024-09-28] MEDS: VENLAFAXINE HCL XR 75 MG CAPXR PO ONE (11:34)
[2024-09-28] MEDS: lamoTRIgine 100 MG TAB PO SCH (14:44)
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
[2024-09-28] MEDS: LURASIDONE HCL 20 MG TAB PO SCH (17:14)
[2024-09-29] MEDS: clonazePAM 0.5 MG TAB PO PRN (02:57)
[2024-09-29 08:18] LABS: Cholesterol 190.0 mg/dl (0-200); HDL Cholesterol 37.0 mg/dl; Triglycerides 134.0 mg/dl (0-150)
[2024-09-29] MEDS: lamoTRIgine 100 MG TAB PO SCH (08:25)
[2024-09-29] MEDS: LITHIUM CARBONATE SLOW REL 300 MG TAB PO SCH ×2 (08:25→20:44)
[2024-09-29 08:37] LABS: Hemoglobin A1C 5.2 % (4.5-5.6)
[2024-09-29] MEDS: ACETAMINOPHEN 325 MG TAB PO PRN (11:53)
[2024-09-29] MEDS: CHOLECALCIFEROL 125 MCG (5,000 UNITS) TAB PO SCH (12:27)
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
[2024-09-29 13:38] LABS: Amphetamine Urine, Confirm 3411 ng/mL (<250); Methamphetamine, Ur Confirm NEGATIVE ng/mL (<250)
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
[2024-10-01] MEDS: PSYLLIUM HUSK 4GM PACKET PO SCH (17:21)
[2024-10-01] MEDS: MAGNESIUM CITRATE 296 ML/BTL PO SCH (21:14)
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
[2024-10-02] MEDS: clonazePAM 1 MG TAB PO ONE (20:36)
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
== END 2024-10-03 11:20 | disposition home or self-care (01) | DRG 885 ==
LOC: ED 19:51 → SUATTDRO 09-27 13:52 → 3S 09-27 13:52
DX: F41.1 Generalized anxiety disorder; F31.81 Bipolar II disorder; R45.851 Suicidal ideations; F60.89 Other specific personality disorders; E55.9 Vitamin D deficiency, unspecified; Z62.810 Personal history of physical and sexual abuse in childhood; Z87.891 Personal history of nicotine dependence; F43.10 Post-traumatic stress disorder, unspecified